=== PATIENT | female | born 1940 | race Caucasian/White ===

== ENCOUNTER 2016-10-30 07:18 | Day surgery (SDC) ==
[2016-10-30] MEDS ORDERED: LIDOCAINE 1% 2ML (SURGERY ONLY) ID ONE (08:14)
[2016-10-30] MEDS ORDERED: LIDOCAINE 1% 20 ML MDV ONE (08:14)
[2016-10-30] MEDS ORDERED: ZOFRAN 4 MG/2 ML ONE (09:05)
[2016-10-30] MEDS ORDERED: ANECTINE ONE (09:05)
[2016-10-30] MEDS ORDERED: VERSED ONE (09:05)
[2016-10-30] MEDS ORDERED: DIPRIVAN 20 ML VIAL IVP ONE (09:05)
[2016-10-30] MEDS ORDERED: NORCO 5-325 PO ONE (10:12)
[2016-10-30 14:00] VITALS: BP 99/64; TEMP 98.8
--- NOTE | 2016-10-31 14:15 | OP ---
PREOPERATIVE DIAGNOSIS: CARCINOMA OF THE BASE OF TONGUE POSTOPERATIVE DIAGNOSIS: SAME OPERATION: DIRECT LARYNGOSCOPY AND BIOPSY BASE OF TONGUE PROCEDURE: The patient was taken to surgery, placed on the table and general anesthesia was administered. An anterior laryngoscope was inserted down the vallecula which appeared to be free of disease. Piriform sinuses were clear. Vocal cords moved well with no lesions noted. The epiglottis appeared free of disease. There was inflammation and postop surgical changes of the base of tongue on the left. Biopsy was taken of this area and sent off for permanent section. The patient was then taken back to the recovery room in satisfactory condition. LUKE
== END 2016-10-30 14:28 | disposition admitted as inpatient to this hospital (09) ==
LOC: SURG 07:18
PROVIDERS: ATTEND Otolaryngology
DX: C02.9 Malignant neoplasm of tongue, unspecified (principal)

== ENCOUNTER 2016-11-13 12:12 | Inpatient (IN) ==
[2016-11-13] MEDS ORDERED: ATROPINE SULFATE PFS IVP PRN (13:22)
[2016-11-13] MEDS ORDERED: VISTARIL INJ IM PRN (13:22)
[2016-11-13] MEDS ORDERED: NITROSTAT SL PRN (13:22)
[2016-11-13] MEDS ORDERED: MORPHINE 4 MG/ML SYRINGE IVP PRN (13:22)
[2016-11-13] MEDS: DEXTROSE 5%-1/2NS IV SOLUTION 1,000 ML IV SCH (13:35)
[2016-11-13 13:55] LABS: BASOPHILS % (AUTO) 0.5 % (0.0-3.0); HEMATOCRIT 32.4 % (37.0-47.0); HEMOGLOBIN 11.4 g/dl (12.0-16.0); IMMATURE GRANULOCYTE % (AUTO) 0.2 % (0.0-5.0); LYMPHOCYTES # (AUTO) 0.7 K/uL (0.60-3.4); LYMPHOCYTES % (AUTO) 9.8 (10.0-50.0); MEAN CORPUSCULAR HEMOGLOBIN 33.6 pg (27.0-31.0); MEAN CORPUSCULAR HGB CONC 35.2 (31.8-35.4); MEAN CORPUSCULAR VOLUME 95.6 fl (81.0-99.0); MONOCYTES # (AUTO) 0.3 K/uL (0.4-2.0); MONOCYTES % (AUTO) 3.8 (0-10); NEUTROPHILS # (AUTO) 5.7 K/ul (2.0-6.9); NEUTROPHILS % (AUTO) 85.7; PLATELET COUNT 196 10^3/uL (140-440); RED BLOOD COUNT 3.39 10^6/ul (4.20-5.40); WHITE BLOOD COUNT 6.63 K/ul (4.6-10.2)
--- NOTE | 2016-11-13 14:21 | DI ---
EXAM: CHEST FRONTAL VIEW HISTORY: Cough. COMPARISON: 03/18/2012 FINDINGS: Heart size and mediastinum remain within normal limits. There is at least mild aortic a therosclerosis. There are scattered calcifications suggesting old granulomatous disease. No acute i nfiltrates are seen. There is no consolidation, visible pleural fluid or pneumothorax. Bones reveal no acute fracture. IMPRESSION: No acute cardiopulmonary process.
[2016-11-13 14:24] LABS: ALBUMIN 3.6 g/dL (3.4-5.0); ALBUMIN/GLOBULIN RATIO 1.5; ANION GAP 13.4; BILIRUBIN,TOTAL 0.38 mg/dL (0.00-1.20); BUN/CREATININE RATIO 18.3; CALCIUM 8.9 mg/dL (8.2-10.2); CREATININE 0.71 mg/dL (0.60-1.30); POTASSIUM 4.4 mmol/L (3.5-5.10)
[2016-11-13 14:30] LABS: CREATINE KINASE 24 U/L; MYOGLOBIN 48 ng/ml
[2016-11-13 14:31] VITALS: BMI 20.5
[2016-11-13] MEDS: DILAUDID 1 MG/ML SYRINGE IVP PRN (18:13)
[2016-11-13] MEDS: TORADOL IVP PRN (21:34)
[2016-11-13 22:09] LABS: CREATINE KINASE 26 U/L; MYOGLOBIN 42 ng/ml
[2016-11-14 01:07] LABS: BILIRUBIN,URINE Negative (NEGATIVE); KETONES,URINE Negative (NEGATIVE); LEUKOCYTE ESTERASE ,URINE Negative (NEGATIVE); NITRITE,URINE Negative (NEGATIVE); PH,URINE 7.5 (5-9); PROTEIN,URINE Negative (NEGATIVE); URINE, BLOOD Negative (NEGATIVE)
[2016-11-14 01:09] LABS: ADD URINE MICROSCOPIC NO
[2016-11-14] MEDS: DEXTROSE 5%-1/2NS IV SOLUTION 1,000 ML IV SCH ×2 (05:37→21:42)
[2016-11-14] MEDS ORDERED: NON-FORMULARY MEDICATION (Losartan Potassium [Losartan Potassium] 50 MG) PO SCH (09:00)
[2016-11-14] MEDS ORDERED: NON-FORMULARY MEDICATION (Levothyroxine Sodium [Levothyroxine Sodium] 125 MCG) PO SCH ×22 (09:00)
[2016-11-14] MEDS ORDERED: NON-FORMULARY MEDICATION (Propranolol Hcl [Propranolol Hcl] 40 MG) PO SCH ×22 (09:00)
[2016-11-14] MEDS ORDERED: SYNTHROID PO SCH (09:00)
--- NOTE | 2016-11-14 09:29 | HP ---
DATE OF SERVICE: 11/13/16 HISTORY OF PRESENT ILLNESS: This is a 76-year-old female who had undergone a resection and biopsy of her tongue due to history of tongue cancer by Dr. Portillo today at [facility]. 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 After the procedure, she had mild sedation with Versed and Fentanyl, the postop nurse called and stated she was having some episodes of hypotension. She had blood pressures down into the 70s. They gave her 1.5 Liter fluid bolus. At the time of the call her blood pressure was in the 90's/50, she was feeling weak, was pale. Her hemoglobin they checked and it was 10.3. Her oxygen saturation - she required blow by 02 and was not above 90% without that. She was saying that she was in excruciating pain. The plan initially was to give her p.o. [place]; however , due to her procedure and the pain and swelling, she was unable to swallow the pills. Subsequently, Dr. Portillo consulted us and we will admit her today for hypotension, weakness and of course some pain control. REVIEW OF SYSTEMS: CONSTITUTIONAL: Positive for generalized weakness and fatigue. No night sweats. No fever or chills. HEENT: Pain in mouth and tongue. Eyes: No visual changes. No eye pain. No eye discharge. ENT: No runny nose. No epistaxis. No sinus pain. No ear pain. No congestion. RESPIRATORY: No cough. No shortness of breath. No hemoptysis. CARDIOVASCULAR: No angina symptoms. No CHF signs or symptoms. No atypical chest pain for CAD. No palpitations. No shortness of breath. GASTROINTESTINAL: Positive for nausea. No vomiting. No abdominal pain. No diarrhea or constipation. No hematemesis. No hematochezia. GENITOURINARY: No dysuria, no hematuria. MUSCULOSKELETAL: Weakness and osteoarthritis. No joint swelling or redness. NEUROLOGICAL: Weakness. No headache. No neck pain. No syncope. No seizures. No dizziness. No double vision. PSYCHIATRIC: The patient is tearful. No suicidal thoughts. No homicidal thoughts. SKIN: Dry and intact. ENDOCRINE: No unexplained weight loss. No weight gain. HEMATOLOGIC/LYMPHATIC: No anemia. No purpura. No petechiae. No prolonged or excessive bleeding. No palpable lymph nodes. PERSONAL/FAMILY/SOCIAL HISTORY: The patient is . She denies any alcohol or ilicit drug use. She is a nonsmoker and she has minimal family contact and support. PAST MEDICAL HISTORY: 1. History of cancer of the left tonsil in 2001. 2. Hypothyroidism. 3. Dyslipidemia. 4. Anemia. 5. Osteoporosis/osteoarthritis. 6. B12 deficiency. 7. Anemia. 8. Hypertension. 9. Dyslipidemia. MEDICATIONS: 1. Amlodipine 5 mg daily 2. Losartan 50 mg daily 3. Synthroid 125 mcg daily 4. Propanolol 40 mg b.i.d. 5. Pravastatin 40 mg daily 6. Ferrous Sulfate 325 mg daily 7. Tylenol 500 mg t.i.d. p.r.n. ALLERGIES: X-RAY DYE (SEVERE ITCHING) PHYSICAL EXAMINATION: GENERAL: Skin is dry, pale. VITAL SIGNS: Pulse 75, BP 93/54 upon admission to the floor. Oxygen saturation 98% with blow by 02 of 5L. HEENT: Head normocephalic, atraumatic. Eyes: Extraocular muscles are intact. Pupils are equal, round and reactive to light and accommodation. Ears: No lesions. Nose appeared normal. Mouth: Status post resection of tongue, partial removal of her tongue. Throat: No exudate or erythema. NECK: Supple. No JVD, no carotid bruit. No lymphadenopathy or thyromegaly. LUNGS: Clear with diminished breath sounds bilaterally. Percussion note normal. Chest symmetrical. HEART: S1, S2, no S3. No murmurs, clicks or rubs. No cyanosis or clubbing. No ascites. Pulses: Dorsalis pedis and posterior tibial pulses +1 to +2 both sides. ABDOMEN: Soft. Nontender. Bowel sounds active times four quadrants. No CVA tenderness. No mass felt. EXTREMITIES: No edema. Full range of motion of all extremities, equal. Pulses +2 times four extremities. NEUROLOGIC: Motor and gait normal with positive generalized weakness. No focal deficit. Cranial nerves II through XII are grossly intact. No headache, no double vision or headache. SKIN: Not dry. Intact. Turgor - normal. LYMPHATIC: No palpable lymph nodes/no lymphedema. MUSCULOSKELETAL: Normal joints with no swelling. Muscle tone is normal. ASSESSMENT: 1. HYPOTENSION 2. GENERALIZED WEAKNESS 3. ANEMIA 4. STATUS POST BIOPSY AND RESECTION OF TONGUE WITH TONGUE CANCER PLAN: 1. The patient will be admitted to observation. 2. 1 mg Dilaudid IV q.4-6hr p.r.n. pain. 3. Toradol 30 mg q.8hr IV p.r.n. for pain. 4. Routine telemetry orders with a chest x-ray. 5. Will do CBC and CMP today and then daily. 6. Soft diet as tolerated. 7. We will hold all of her blood pressure medications for today and see how her status is as of tomorrow. 8. We will start IV fluids D5 1/2 Normal Saline at 60 cc/hr. 9. The patient can be up and about as tolerated. Chest x-ray on admission is normal with no cardiopulmonary process. CMP - sodium 133, BUN 13, creatinine 0.71, glucose 119. Repeat hemoglobin 11.4, hematocrit 32.4, white count 6.6 and platelets 196. TIME SPENT: More than 70 minutes. MTDD
--- NOTE | 2016-11-14 10:28 | PN ---
DATE OF SERVICE: 11/13/16 SUBJECTIVE: The patient was seen with the nurse practitioner. The patient is a 76 year old white female underwent surgery and biopsy for possible tongue carcinoma. She has history of jaw carcinoma for a long time. Dr. Portillo and the nursing staff from [facility] called my services as primary care physician of Jacki Mancera and reported that patient was running blood pressure systolic of 90-100, looks somewhat pale, pulse was close to 80 per minute with normal oxygen saturation. I examined the patient and the patient looked pale, dehydrated and her skin was dry. She was oriented to time, place and person. She lives by herself and has nobody to look after her. PHYSICAL EXAMINATION: HEENT: Head normocephalic, atraumatic. Eyes: Extraocular muscles are intact. Pupils are equal, round and reactive to light and accommodation. Ears: No lesions. Nose appeared normal. Throat: No exudate or erythema. NECK: Supple. No JVD, no carotid bruit. No lymphadenopathy or thyromegaly. LUNGS: Decreased breath sounds but clear to auscultation. Percussion note normal. Chest symmetrical. HEART: S1, S2, no S3. No murmurs. No cyanosis or clubbing. No ascites. Pulses: Dorsalis pedis and posterior tibial pulses +1 to +2 both sides. ABDOMEN: Soft. Nontender. Bowel sounds active. No CVA tenderness. No mass felt. EXTREMITIES: No edema. Full range of motion of all extremities, equal. NEUROLOGIC: No focal deficit. Cranial nerves II through XII are grossly intact. No headache, no double vision or headache. SKIN: Dry. Intact. Turgor - normal. Mucosa membrane dry. LYMPHATIC: No palpable lymph nodes/no lymphedema. MUSCULOSKELETAL: Normal joints with no swelling. Muscle tone is normal. LABS: Hgb was 11.4, hct 32, WBC 6,600 normal differential, creatinine 0.7, BUN 13, potassium 4.4. Chest x-ray was normal. ASSESSMENT: 1. Hypotension etiology could be dehydration post op hypotension PLAN: 1. Give IV fluids 2. Monitor telemetry 3. Monitor the cardiac rhythm with telemetry CONDITION: Stable. TIME SPENT: More than 30 minutes. Plan and coordination of the patient's care discussed in the presence of nurse. LUKE
[2016-11-14] MEDS: COZAAR PO SCH (10:37)
[2016-11-14] MEDS: AMOXIL PO SCH ×2 (10:38→17:11)
[2016-11-14] MEDS: TORADOL IVP PRN (10:38)
[2016-11-14] MEDS: SYNTHROID PO SCH ×2 (10:40→10:41)
[2016-11-14] MEDS: NORVASC PO SCH (10:40)
[2016-11-14] MEDS: INDERAL PO SCH ×2 (10:41→20:21)
[2016-11-14] MEDS: ULTRAM PO SCH ×3 (12:10→20:21)
--- NOTE | 2016-11-14 13:16 | PCM.PROG ---
Attending Provider: ATTENDING PROVIDER: Dr. KVNG EPSTEIN DATE OF SERVICE: 11/14/16 SUBJECTIVE: This 76 year old WHITE/ F was hospitalized 11/13/16. The patient is seen with Anum, Nurse Practitioner. The patient is lying in bed alert, states pain has been helped with medication. Tongue is more swollen and sore today, can drink boost and water. REVIEW OF SYSTEMS: CONSTITUTIONAL: No night sweats. No fatigue, malaise, lethargy. No fever or chills. HEENT: Eyes: No visual changes. No eye pain. No eye discharge. ENT: No runny nose. No epistaxis. No sinus pain. No odynophagia. No congestion. Mouth: Tongue pain. RESPIRATORY: No cough, no congestion. No hemoptysis. CARDIOVASCULAR: No angina symptoms. No CHF symptoms. No atypical chest pain for CAD. No palpitations. No shortness of breath. GASTROINTESTINAL: No abdominal pain. No nausea or vomiting. No diarrhea or constipation. No hematemesis. No hematochezia. GENITOURINARY: No urgency. No frequency. No dysuria. No hematuria. No obstructive symptoms. No discharge. No pain. No significant abnormal bleeding. MUSCULOSKELETAL: No musculoskeletal pain; no joint swelling. NEUROLOGICAL: Awake, alert, oriented to time, place and person. No headache. No neck pain. No syncope. No seizures. No dizziness. PSYCHIATRIC: Not anxious. No depression. No suicidal thoughts. No homicidal thoughts. SKIN: No rash. No lesions. No wounds. ENDOCRINE: No unexplained weight loss. No weight gain. HEMATOLOGIC/LYMPHATIC: No anemia. No purpura. No petechiae. No prolonged or excessive bleeding. No palpable lymph nodes. PHYSICAL EXAMINATION: GENERAL: The patient is awake, alert and oriented, lying/sitting in bed in no distress. VITAL SIGNS: Temperature 96.8 F, Pulse 88, Respiratory Rate 20, BP 153/80, Pulse Ox 98% HEENT: Head normocephalic, atraumatic. Eyes: Extraocular muscles are intact. Pupils are equal, round and reactive to light and accommodation. Ears: No lesions. Nose appeared normal. Mouth: Swollen tongue. Throat: No exudate or erythema. NECK: Supple. No JVD, no carotid bruit. No lymphadenopathy or thyromegaly. LUNGS: Decreased breath sounds bilaterally. Clear to auscultation. Percussion note normal. Chest symmetrical. HEART: S1, S2, no S3. No murmurs. No cyanosis or clubbing. No ascites. Pulses: Dorsalis pedis and posterior tibial pulses +1 to +2 both sides. ABDOMEN: Soft. Non-tender. Bowel sounds active. No CVA tenderness. No mass felt. EXTREMITIES: No edema. Full range of motion of all extremities, equal. NEUROLOGIC: No focal deficit. Cranial nerves II through XII are grossly intact. No headache, no double vision or headache. SKIN: Not dry. Intact. Turgor-normal. LYMPHATIC: No palpable lymph nodes/no lymphedema. MUSCULOSKELETAL: Normal joints with no swelling. Muscle tone is normal. LAB REVIEW: 11/13/16 13:48 11/13/16 13:48 11/14/16 00:45: Urine Color Yellow, Urine Clarity Clear, Urine pH 7.5, Ur Specific Buckhorn 1.015, Urine Protein Negative, Urine Glucose (UA) Negative, Urine Ketones Negative, Urine Blood Negative, Urine Nitrite Negative, Urine Bilirubin Negative, Urine Urobilinogen 0.2, Ur Leukocyte Esterase Negative 11/13/16 21:30: Total Creatine Kinase 26, Myoglobin 42, Troponin I < 0.0100 11/13/16 13:48: WBC 6.63, RBC 3.39 L, Hgb 11.4 L, Hct 32.4 L, MCV 95.6, MCH 33.6 H, MCHC 35.2, RDW Coeff of Rama 12.6, Plt Count 196, Immature Gran % (Auto) 0.2, Neut % (Auto) 85.7, Lymph % (Auto) 9.8 L, Stevens % (Auto) 3.8, Eos % (Auto) 0.0, Baso % (Auto) 0.5, Immature Gran # (Auto) 0.0, Neut # 5.7, Lymph # 0.7, Stevens # 0.3 L, Eos # 0.0, Baso # 0.0, Sodium 133 L, Potassium 4.4, Chloride 98, Carbon Dioxide 26, Anion Gap 13.4, BUN 13, Creatinine 0.71, Estimated GFR (MDRD ) 80.00, BUN/Creatinine Ratio 18.30, Glucose 119 H, Calcium 8.9, Total Bilirubin 0.38, AST 19, ALT 17, Alkaline Phosphatase 78, Total Creatine Kinase 24, Myoglobin 48, Troponin I < 0.0100, Total Protein 6.0, Albumin 3.6, Globulin 2.4, Albumin/Globulin Ratio 1.50 ASSESSMENT: 1. Hypotension status post tongue biopsy 2. Carcinoma of tongue with small resection 3. Dizziness PLAN: 1. Continue IV fluids 2. Will try to give home medications Plan and coordination of the patient's care discussed in the presence of Staffing Clerk and nurse. CONDITION: Stable SCRIBED BY: JINNY AYALA Supervisor Production scribed while in presence of service performed by Dr. KVNG EPSTEIN/ANUM ALEX APRN on 11/14/16 ([id number])
[2016-11-14] MEDS: DILAUDID 1 MG/ML SYRINGE IVP PRN (17:40)
[2016-11-15] MEDS: AMOXIL PO SCH ×2 (02:45→08:42)
[2016-11-15] MEDS: SYNTHROID PO SCH ×2 (05:31)
[2016-11-15] MEDS: DILAUDID 1 MG/ML SYRINGE IVP PRN (05:35)
--- NOTE | 2016-11-15 08:29 | RS.SLPCNOT ---
Speech Case Note Date of Note: 11/15/16 Title: Speech Consult Note: OUTSIDE SALES ASSOCIATE spoke with director case who reported pt is planned for discharge this date. casino shift manager reported pt primarily consumes a liquid diet d/t hx of throat and tongue cancer. OUTSIDE SALES ASSOCIATE did not assess pt at the bedside this date. No other concerns were reported. Pt may benefit from home health speech therapy services.
[2016-11-15 08:39] LABS: BASOPHILS % (AUTO) 0.2 % (0.0-3.0); EOSINOPHILS # (AUTO) 0.1 K/ul (0.0-0.7); EOSINOPHILS % (AUTO) 1.1 % (0.0-7.0); HEMATOCRIT 31.1 % (37.0-47.0); HEMOGLOBIN 10.9 g/dl (12.0-16.0); IMMATURE GRANULOCYTE % (AUTO) 0.3 % (0.0-5.0); LYMPHOCYTES # (AUTO) 1.1 K/uL (0.60-3.4); LYMPHOCYTES % (AUTO) 12.6 (10.0-50.0); MEAN CORPUSCULAR HEMOGLOBIN 34.1 pg (27.0-31.0); MEAN CORPUSCULAR VOLUME 97.2 fl (81.0-99.0); MONOCYTES # (AUTO) 0.5 K/uL (0.4-2.0); MONOCYTES % (AUTO) 6.1 (0-10); NEUTROPHILS % (AUTO) 79.7; PLATELET COUNT 177 10^3/uL (140-440); WHITE BLOOD COUNT 8.75 K/ul (4.6-10.2)
[2016-11-15] MEDS: COZAAR PO SCH (08:41)
[2016-11-15] MEDS: INDERAL PO SCH (08:41)
[2016-11-15] MEDS: NORVASC PO SCH (08:42)
[2016-11-15] MEDS: ULTRAM PO SCH (08:42)
[2016-11-15 09:20] LABS: ALBUMIN 3.3 g/dL (3.4-5.0); ALBUMIN/GLOBULIN RATIO 1.1; ANION GAP 12.8; BILIRUBIN,TOTAL 0.54 mg/dL (0.00-1.20); BUN/CREATININE RATIO 13.63; CALCIUM 8.8 mg/dL (8.2-10.2); CREATININE 0.66 mg/dL (0.60-1.30); POTASSIUM 3.8 mmol/L (3.5-5.10); TOTAL PROTEIN 6.3 g/dL (5.8-8.1)
[2016-11-15 10:32] VITALS: BP 99/56; TEMP 96.8
--- NOTE | 2016-11-15 10:38 | PN ---
DATE OF SERVICE: 11/14/16 SUBJECTIVE: The patient was seen with the nurse practitioner. The patient is a 76 year old white female hospitalized with hypotension post op. The patient was dehydrated with dry skin. The patient's skin turgor looks a lot better. Her appetite seems to have improved. She is more alert. She says that she is feeling somewhat better. PHYSICAL EXAMINATION: VITALS: Blood pressure has gone up to 153/80. HEENT: Head normocephalic, atraumatic. Eyes: Extraocular muscles are intact. Pupils are equal, round and reactive to light and accommodation. Ears: No lesions. Nose appeared normal. Throat: No exudate or erythema. NECK: Supple. No JVD, no carotid bruit. No lymphadenopathy or thyromegaly. LUNGS: Decreased breath sounds but Clear to auscultation. Percussion note normal. Chest symmetrical. HEART: S1, S2, no S3. No murmurs. No cyanosis or clubbing. No ascites. Pulses: Dorsalis pedis and posterior tibial pulses +1 to +2 both sides. ABDOMEN: Soft. Nontender. Bowel sounds active. No CVA tenderness. No mass felt. EXTREMITIES: No edema. Full range of motion of all extremities, equal. NEUROLOGIC: No focal deficit. Cranial nerves II through XII are grossly intact. No headache, no double vision or headache. SKIN: Not dry. Intact. Turgor - normal. LYMPHATIC: No palpable lymph nodes/no lymphedema. MUSCULOSKELETAL: Normal joints with no swelling. Muscle tone is normal. LABS: Stable with hgb 11.4 and creatinine 0.7, BUN 13. ASSESSMENT: 1. Hypotension, resolved 2. Dehydration seems to have resolved. PLAN: 1. Continue IV antibiotics 2. Advised to get up and walk around CONDITION: Stable. TIME SPENT: More than 30 minutes. Plan and coordination of the patient's care discussed in the presence of nurse. LUKE
--- NOTE | 2016-11-15 10:44 | CM.DICTOOL ---
ADMISSION: 11/13/16 12:12 DISCHARGE: 11/15/16 DATE OF SERVICE: 11/15/16 FINAL DIAGNOSIS POST OP HYPOTENSION BIOPSY OF TONGUE, 11/13/16 (DR. MCCAIN) DYSPHAGIA SECONDARY TO TONGUE BIOPSY ANEMIA CARCINOMA OF THE TONGUE WITH SMALL RESECTION, 2002 THROAT CANCER, 2002 [facility] TE[facility] [place] HYPERTENSION GERD OSTEOARTHRITIS ANXIETY LAST VITALS Temp Pulse Resp BP Pulse Ox 98.8 F 62 16 114/68 95 11/15/16 05:32 11/15/16 05:32 11/15/16 05:32 11/15/16 05:32 11/15/16 05:32 ACTIVE MEDICATIONS Acetaminophen (Tylenol Extra Strength) 500 mg PO DAILY Amlodipine Besylate (Norvasc) 5 mg PO DAILY [facility] Last Admin: 11/15/16 08:42 Dose: 5 mg Amoxicillin (Amoxil) 250 mg PO Q8H [facility] (NEW--DR. MCCAIN) Stop: 11/21/16 09:29 Last Admin: 11/15/16 08:42 Dose: 250 mg Ferrous Sulfate 65 mg PO DAILY Levothyroxine Sodium (Synthroid) 125 mcg PO QDAC [facility] Last Admin: 11/15/16 05:31 Dose: 25 mcg Losartan Potassium (Cozaar) 50 mg PO DAILY [facility] Last Admin: 11/15/16 08:41 Dose: 50 mg Pravastatin Sodium 40 mg PO DAILY Propranolol HCl (Inderal) 40 mg PO BID [facility] Last Admin: 11/15/16 08:41 Dose: 40 mg Tramadol HCL 50 mg PO TID ALLERGIES IV constrast Allergy (Uncoded 09/04/16 13:26) NEW PRESCRIPTIONS: DR. MCCAIN: NORCO 7.5-325 MG, TAKE ONE TO TWO TABLETS BY MOUTH EVERY 6 HOURS IF NEEDED FOR PAIN AMOXICILLIN 500 MG, TAKE ONE TABLET BY MOUTH THREE TIMES DAILY FOR 6 DAYS (YOU HAVE HAD ONE DAY OF AMOXICILLIN AT [facility]) SMOKING: NONSMOKER DISEASE SPECIFIC EDUCATION: HYPOTENSION DIET ACTIVITY FOLLOW UP SELF CARE AT HOME MEDICATIONS NEW PRESCRIPTIONS FROM DR. YANG LAB REVIEW: 11/15/16 08:27 11/15/16 08:27 11/15/16 08:27: WBC 8.75, RBC 3.20 L, Hgb 10.9 L, Hct 31.1 L, MCV 97.2, MCH 34.1 H, MCHC 35.0, RDW Coeff of Rama 12.9, Plt Count 177, Immature Gran % (Auto) 0.3, Neut % (Auto) 79.7, Lymph % (Auto) 12.6, Rabun % (Auto) 6.1, Eos % (Auto) 1.1, Baso % (Auto) 0.2, Immature Gran # (Auto) 0.0, Neut # 7.0 H, Lymph # 1.1, Rabun # 0.5, Eos # 0.1, Baso # 0.0, Sodium 129 L, Potassium 3.8, Chloride 95 L, Carbon Dioxide 25, Anion Gap 12.8, BUN 9, Creatinine 0.66, Estimated GFR (MDRD) 87.00, BUN/Creatinine Ratio 13.63, Glucose 92, Calcium 8.8, Total Bilirubin 0.54 , AST 17, ALT 14, Alkaline Phosphatase 77, Total Protein 6.3, Albumin 3.3 L, Globulin 3.0, Albumin/Globulin Ratio 1.10, TSH 1.357, Free T4 1.73 H PLAN: DISCHARGE HOME TODAY RETURN TO SEE DR. EPSTEIN ON 11/22/16 AT 11:30 A.M. RETURN TO SEE DR. MCCAIN ON 11/20/16 AT 1:15 P.M. [facility] AND [facility] WILL BE RESUMED. THEY WILL PHONE YOU TO SCHEDULE VISITS TO YOUR HOME. RESUME YOUR HOME MEDICATIONS PER LIST PROVIDED BY THE NURSING STAFF NEW PRESCRIPTIONS BY DR. MCCAIN: NORCO 7.5-325 MG, TAKE ONE TO TWO TABLETS BY MOUTH EVERY 6 HOURS IF NEEDED FOR PAIN AMOXICILLIN 500 MG, TAKE ONE TABLET BY MOUTH THREE TIMES DAILY FOR 6 DAYS (YOU HAVE HAD ONE DAY OF AMOXICILLIN AT [facility]) DIET: RESUME YOUR HOME DIET TOLERATED ACTIVITY: GET PLENTY OF REST AT HOME. GRADUALLY INCREASE YOUR ACTIVITY LEVEL ACCORDING TO YOUR TOLERATION SUMMARY: THE PATIENT IS ALERT AND ORIENTED X3. SHE CURRENTLY RESIDES AT HOME ALONE. WE HAVE HAD DISCUSSION WITH HER REGARDING HER ABILITY TO PROVIDE SELF-CARE. SHE ADAMANTLY SAYS SHE DESIRES TO RETURN TO HER "[place] [address]ART[place]" WHERE HER NEIGHBORS RESIDE VERY CLOSE. SHE SAYS THEY ASSIST HER WITH NEEDS WHEN NECESSARY. SHE ALSO UTILIZES [facility] TWICE WEEKLY FOR MED SURG RN. [facility] WILL BE RESUMED AT DISCHARGE WELL. CASE MANAGEMENT WILL MAKE ARRANGEMENTS FOR THE HOMEMAKING SERVICE TIME TO BE INCREASED AFTER THIS HOSPITAL STAY. MS. GRAHAM IS ABLE TO BE AMBULATORY WITH USE OF A ROLLATOR. SHE HAS NO OTHER DME NEEDS AT THIS TIME. THE PATIENT'S SKIN TURGOR IS FAIR TO GOOD. SHE HAS NO DECUBITUS ULCERS PRESENT AT DISCHARGE. SHE HAS SHOWN POSITIVE CLINICAL IMPROVEMENT. SHE IS AFEBRILE. OTHER V/S ARE STABLE. WE WILL DISCHARGE HER TODAY. SHE IS AWARE AND AGREEABLE FOR DISCHARGE. CURRENT CODE STATUS: FULL CODE KVNG EPSTEIN M.D.
--- NOTE | 2016-11-15 11:19 | PCM.PROG ---
Attending Provider: ATTENDING PROVIDER: Dr. KVNG EPSTEIN DATE OF SERVICE: 11/15/16 SUBJECTIVE: This 76 year old WHITE/ F was hospitalized 11/13/16. The patient is hospitalized with dehydration and hypotension. The patient's condition improved. She is looking a lot better, color and skin turgor better. Appetite has improved. The patient is talking better. The patient lives alone , has taken care of herself for a number of years. REVIEW OF SYSTEMS: CONSTITUTIONAL: No night sweats. No fatigue, malaise, lethargy. No fever or chills. HEENT: Eyes: No visual changes. No eye pain. No eye discharge. ENT: No runny nose. No epistaxis. No sinus pain. No odynophagia. No congestion. Mouth: Tongue is retracted but no evidence of infection. RESPIRATORY: No cough, no congestion. No hemoptysis. CARDIOVASCULAR: No angina symptoms. No CHF symptoms. No atypical chest pain for CAD. No palpitations. No shortness of breath. GASTROINTESTINAL: Appetite has improved. No abdominal pain. No nausea or vomiting. No diarrhea or constipation. No hematemesis. No hematochezia. GENITOURINARY: No urgency. No frequency. No dysuria. No hematuria. No obstructive symptoms. No discharge. No pain. No significant abnormal bleeding. MUSCULOSKELETAL: No musculoskeletal pain; no joint swelling. NEUROLOGICAL: Awake, alert, oriented to time, place and person. No headache. No neck pain. No syncope. No seizures. No dizziness. PSYCHIATRIC: Not anxious. No depression. No suicidal thoughts. No homicidal thoughts. SKIN: No rash. No lesions. No wounds. ENDOCRINE: No unexplained weight loss. No weight gain. HEMATOLOGIC/LYMPHATIC: No anemia. No purpura. No petechiae. No prolonged or excessive bleeding. No palpable lymph nodes. PHYSICAL EXAMINATION: GENERAL: The patient is awake, alert and oriented, lying in bed in no distress. VITAL SIGNS: Temperature 98.8 F, Pulse 62, Respiratory Rate 16, BP 114/68, Pulse Ox 95% HEENT: Head normocephalic, atraumatic. Eyes: Extraocular muscles are intact. Pupils are equal, round and reactive to light and accommodation. Ears: No lesions. Nose appeared normal. Mouth: Small retracted tongue. Throat: No exudate or erythema. NECK: Supple. No JVD, no carotid bruit. No lymphadenopathy or thyromegaly. LUNGS: Decreased breath sounds. Clear to auscultation. Percussion note normal. Chest symmetrical. HEART: S1, S2, no S3. No murmurs. No cyanosis or clubbing. No ascites. Pulses: Dorsalis pedis and posterior tibial pulses +1 to +2 both sides. ABDOMEN: Soft. Non-tender. Bowel sounds active. No CVA tenderness. No mass felt. EXTREMITIES: No edema. Full range of motion of all extremities, equal. NEUROLOGIC: No focal deficit. Cranial nerves II through XII are grossly intact. No headache, no double vision or headache. The patient's speech is understandable. SKIN: Not dry. Intact. Turgor-normal. LYMPHATIC: No palpable lymph nodes/no lymphedema. MUSCULOSKELETAL: Normal joints with no swelling. Muscle tone is normal. LAB REVIEW: 11/13/16 13:48 11/13/16 13:48 ASSESSMENT: 1. Hypotension 2. Dehydration 3. Cancer of the tongue 4. Cancer of the jaw, left side with radiation PLAN: 1. The patient's tongue is retracted and almost atrophied with cancer of the tongue. The patient is followed by ENT, Dr. Portillo, and she has appointment to see him next few days on Amoixicillin by Dr. Portillo. 2. The patient has Home Health Care and has extra help at home. The patient is able to manage herself with meals and ambulation. 3. Discharge home. Plan and coordination of the patient's care discussed in the presence of Paving Inspector and nurse. CONDITION: Stable SCRIBED BY: JINNY AYALA Architectural Practice Manager scribed while in presence of service performed by Dr. KVNG EPSTEIN on 11/15/16 ([id number])
--- NOTE | 2016-11-15 11:44 | DS ---
DATE OF SERVICE: 11/15/16 FINAL DIAGNOSIS: 1. POSTOP HYPOTENSION 2. BIOPSY OF TONGUE 11/13/16 (DR. MCCAIN) 3. DYSPHAGIA SECONDARY TO TONGUE BIOPSY 4. ANEMIA 5. 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 THROAT CANCER, 2001 7. LEFT RENAL TEAR (DR. ORDONEZ, [place], [place]) 8. HYPERTENSION 9. GERD 10. OSTEOARTHRITIS 11. ANXIETY LAST V/S AT DISCHARGE: Temperature 98.8, pulse 62, respiratory rate 16, BP 114/68, pulse ox 95. DISCHARGE INSTRUCTIONS: 1. Return to see Dr. Gusman on 11/22/16 at 11:30 a.m. 2. Return to see Dr. Mccain on 11/20/16 at 1:15 p.m. 3. [facility] and [facility] will be resumed. They will phone you to schedule visits to your home. MEDICATIONS AT DISCHARGE: 1. Propranolol 40 mg p.o. b.i.d. 2. Ferrous Sulfate 325 mg capsule, 65 mg p.o. daily 3. Pravastatin 40 mg p.o. daily 4. Acetaminophen 500 mg p.o. daily 5. Losartan 50 mg p.o. daily 6. Levothyroxine 125 mcg p.o. daily 7. Amlodipine 5 mg p.o. daily 8. Tramadol 50 mg p.o. t.i.d. NEW PRESCRIPTIONS: 1. Per Ollie Blevins 7.5 - 325 mg take one to two tablets by mouth every 6 hours if needed for pain. 2. Amoxicillin 500 mg take one tablet by mouth three times daily for 6 days. ( You have had one day of Amoxicillin at [facility]) DIET INSTRUCTIONS: Resume your home medications as per list provided by nursing staff. ACTIVITY: Get plenty of rest at home. Gradually increase your activity level according to your toleration. SMOKING: N/A DISEASE SPECIFIC EDUCATION: 1. Hypotension 2. Diet 3. Activity 4. Followup 5. Self Care at home 6. Medications 7. New prescriptions from Dr. Mccain [facility] COURSE: This is a 76-year-old female hospitalized from surgical recovery room with hypotension and dehydration. The patient had biopsy of tongue by Dr. Mccain and he called me because of the hypotension. Condition has improved. Hydration status has improved. Blood pressure systolic is more than 100. CBC, CMP are stable. Appetite has improved. The tongue is retracted, no infection. LABS: 11/13/16 WBC 6.63, hemoglobin 11.4, platelets 196, hematocrit 32.4. Chemistries : Sodium 133, chloride 98, BUN 13, glucose 119, K+ 4.4, c02 26, creatinine 0.71. CONDITION: Stable. The patient will be followed by myself and Dr. Mccian. TIME SPENT: More than 60 minutes. SCRIBED BY: JINNY AYALA Field Sales Trainer scribed while in presence of service performed by Dr. KVNG GUSMAN on 11/15/16 ([id number]) [facility]
[2016-11-15] MEDS: DEXTROSE 5%-1/2NS IV SOLUTION 1,000 ML IV SCH (12:33)
== END 2016-11-15 12:50 | disposition home or self-care (01) | DRG 312 ==
LOC: MEDSURG B 12:12 → OBSVTOIN 12:12 → UNDOADMOB 12:12
PROVIDERS: ADMIT Internal Medicine; ATTEND Internal Medicine
DX: I95.81 Postprocedural hypotension (principal); E86.0 Dehydration; Z98.890 Other specified postprocedural states; R13.19 Other dysphagia; K14.6 Glossodynia; D64.9 Anemia, unspecified; I10 Essential (primary) hypertension; K21.9 Gastro-esophageal reflux disease without esophagitis; M19.90 Unspecified osteoarthritis, unspecified site; F41.9 Anxiety disorder, unspecified; R42 Dizziness and giddiness; R07.89 Other chest pain; R11.2 Nausea with vomiting, unspecified; R53.83 Other fatigue; Z85.810 Personal history of malignant neoplasm of tongue; Z85.12 Personal history of malignant neoplasm of trachea; Z87.448 Personal history of other diseases of urinary system; Z79.899 Other long term (current) drug therapy
CPT/HCPCS: 36415; 80053; 81001; 82550; 83874; 84439; 84443; 84484; 85014; 85018; 85025; 93005; 93010; 97802

== ENCOUNTER → 2016-11-13 | Day surgery (SDC) ==
[~2016-11-13] MED LIST: DEMEROL 50 MG/ML SYRINGE IVP ONE; DIPRIVAN 20 ML VIAL IVP ONE; MARCAINE 0.25% MDV INJ ONE; NEOSTIGMINE IVP ONE; ROBINOL ONE; SUBLIMAZE ONE; TRANDATE ONE; VERSED ONE; ZEMURON ONE; ZOFRAN 4 MG/2 ML IVP ONE
[2016-11-13 08:20] VITALS: TEMP 98.1
[2016-11-13 11:07] LABS: HEMATOCRIT 29.2 % (37.0-47.0); HEMOGLOBIN 10.3 g/dl (12.0-16.0)
[2016-11-13 14:08] VITALS: BP 94/46
[2016-11-13 14:31] VITALS: BMI 20.5
--- NOTE | 2016-11-14 11:15 | OP ---
PREOPERATIVE DIAGNOSIS: CARCINOMA OF THE BASE OF THE TONGUE POSTOPERATIVE DIAGNOSIS: CARCINOMA OF THE TONGUE OPERATION: EXCISION OF CARCINOMA OF THE LONG ASPECT OF THE TONGUE AND ANTERIOR TONSIL PILLAR AND FLOOR OF THE MOUTH. PROCEDURE: The patient was taken to surgery, placed on the table and general anesthesia was administered. The Cindy-Cayden mouthgag was inserted then on the direct visualization using a cutting Bovie the lateral aspect of the tongue down to the floor of the mouth and the anterior tonsil pillar was cut and removed. The area removed was approximately 3-4cm by approximately 3cm. The section was carried down to the subcutaneous tissue in the area was removed in toto and sent off for frozen section. The patient was then extubated and return to the recover room in satisfactory condition. LUKE
== END | disposition home or self-care (01) ==
LOC: SURG 07:36
PROVIDERS: ATTEND Otolaryngology
DX: C02.9 Malignant neoplasm of tongue, unspecified (principal); C04.9 Malignant neoplasm of floor of mouth, unspecified; D50.9 Iron deficiency anemia, unspecified; Z85.810 Personal history of malignant neoplasm of tongue
CPT/HCPCS: 36415; 85014; 85018

== ENCOUNTER 2016-12-08 18:01 | Inpatient (IN) ==
[2016-12-08] MEDS ORDERED: ATIVAN PO STA (18:05)
[2016-12-08 18:27] LABS: BASOPHILS # (AUTO) 0.1 K/uL (0-0.2); BASOPHILS % (AUTO) 0.9 % (0.0-3.0); EOSINOPHILS # (AUTO) 0.1 K/ul (0.0-0.7); EOSINOPHILS % (AUTO) 1.1 % (0.0-7.0); HEMATOCRIT 33.5 % (37.0-47.0); HEMOGLOBIN 12.3 g/dl (12.0-16.0); IMMATURE GRANULOCYTE % (AUTO) 0.4 % (0.0-5.0); LYMPHOCYTES # (AUTO) 1.4 K/uL (0.60-3.4); LYMPHOCYTES % (AUTO) 23.9 (10.0-50.0); MEAN CORPUSCULAR HGB CONC 36.7 (31.8-35.4); MEAN CORPUSCULAR VOLUME 92.5 fl (81.0-99.0); MONOCYTES # (AUTO) 0.3 K/uL (0.4-2.0); NEUTROPHILS # (AUTO) 3.9 K/ul (2.0-6.9); NEUTROPHILS % (AUTO) 67.7; PLATELET COUNT 294 10^3/uL (140-440); RED BLOOD COUNT 3.62 10^6/ul (4.20-5.40); WHITE BLOOD COUNT 5.68 K/ul (4.6-10.2)
[2016-12-08 18:42] LABS: ABG BASE EXCESS -4 (-2.0-2.0); ABG HCO3 17.8 (22.0-26.0); ABG PCO2 17.8 mmHg (35-45); ABG PH 7.609 (7.35-7.45); ABG TCO2 18 (22.0-28.0)
--- NOTE | 2016-12-08 18:45 | ED.PDOC ---
General ED Provider: Dr. GUERO MCCAIN JR Chief Complaint: Shortness of Air Stated Complaint: became anxious and sl soa this afternoon--was home alone and states tried to get in touch with neighbor--no acute distress noted--was able to walk to er bed from ems cot without dyspnea--recent diagnosed with throat ca and mouth ca--. [ End ]99.9 87 26 100 05/14. 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 SISTER : GEM AZUL [phone]- CALLED 19:14 Time Seen by Physician: 18:45 Mode of Arrival: Ambulance Information Source: Patient, EMT Exam Limitations: No limitations Primary Care Provider: KVNG GUSMAN Nursing and Triage Documentation Reviewed and Agree: No Review of Systems - Review Of Systems Constitutional: Reports: No symptoms Eyes: Reports: No symptoms Ears, Nose, Mouth, Throat: Reports: Mouth pain Respiratory: Reports: Short of air Cardiac: Reports: No symptoms GI: Reports: No symptoms : Reports: No symptoms Musculoskeletal: Reports: No symptoms Skin: Reports: No symptoms Neurological: Reports: Anxiety Endocrine: Reports: No symptoms Hematologic/Lymphatic: Reports: No symptoms All Other Systems: Other Past Medical History - Past Medical History Endocrine: Reports: Hypothyroid, Dyslipidemia Cardiovascular: Reports: Hypertension, Other (POSTOPERATIVE HYPOTENSION AFTER BIOPSY) Respiratory: Reports: None Hematological: Reports: Anemia (B12 DEFF-OLD RECORD) Gastrointestinal: Reports: None Genitourinary: Reports: None Neuro/Psych: Reports: Anxiety Musculoskeletal: Reports: None 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, STATES SHEDULED TO FOLLOW UP WITH DR PENG), Other (CA LEFT TONSIL 2001) Last Menstrual Period: menopause - Surgical History General Surgical History: Reports: Other - Family History Family History: Reports: Unknown - Social History Smoking Status: Never smoker Hx Substance Use: No Alcohol Screening: None Lives: Alone () Physical Exam - Physical Exam Appearance: Well-appearing, Thin Eyes: SHANIQUE, EOMI, Conjunctiva clear ENT: Ears normal, Nose normal, Oropharynx normal (LEFT MID TONGUE WITH CENTIMETER SIZE DEFECT FIBRINOUS BASE) Neck: Supple Respiratory: Airway patent, Breath sounds clear, Breath sounds equal, Respirations nonlabored Cardiovascular: RRR, Pulses normal, No rub, No murmur GI/: Soft, Nontender, No masses, Bowel sounds normal, No Organomegaly Musculoskeletal: Normal strength, ROM intact, No edema, No calf tenderness Skin: Warm, Dry, Normal color Neurological: Alert, Oriented Psychiatric: Anxious Critical Care Note - Critical Care Note Total Time (mins): 0 Course - Course Hematology/Chemistry: 12/08/16 18:20 12/08/16 18:20 Orders, Labs, Meds: Lab Review 12/08/16 12/08/16 18:03 18:20 WBC 5.68 RBC 3.62 L Hgb 12.3 Hct 33.5 L MCV 92.5 MCH 34.0 H MCHC 36.7 H RDW Coeff of Rama 12.3 Plt Count 294 Immature Gran % (Auto) 0.4 Neut % (Auto) 67.7 Lymph % (Auto) 23.9 [place] % (Auto) 6.0 Eos % (Auto) 1.1 Baso % (Auto) 0.9 Immature Gran # (Auto) 0.0 Neut # 3.9 Lymph # 1.4 [place] # 0.3 L Eos # 0.1 Baso # 0.1 D-Dimer (Manual) 591.46 Puncture Site Lb O2 Saturation 99.0 ABG pH 7.609 H* ABG pCO2 17.8 L ABG pO2 90.0 ABG HCO3 17.8 L ABG Total CO2 18 L ABG Base Excess -4 L Michael Test + FiO2 % 21.0 Sodium 128 L Potassium 4.3 Chloride 92 L Carbon Dioxide 22 L Anion Gap 18.3 BUN 10 Creatinine 0.80 Estimated GFR (MDRD) 70.00 BUN/Creatinine Ratio 12.50 Glucose 116 H Lactic Acid 21.8 H Calcium 10.2 Total Bilirubin 0.48 AST 27 ALT 27 Alkaline Phosphatase 110 Total Creatine Kinase 23 Troponin I 0.0110 B-Natriuretic Peptide 133 H Total Protein 7.7 Albumin 4.1 Globulin 3.6 Albumin/Globulin Ratio 1.14 Procalcitonin < 0.05 Orders Category Date Time Status ABG DRAW REQUEST Stat CARDIO 12/08/16 18:03 Completed EKG-(ED ONLY) Stat CARDIO 12/08/16 18:02 Completed ED IV/MEDIPORT/POWERPORT .ONCE EMERGENCY 12/08/16 18:02 Active ABG Stat LAB 12/08/16 18:03 Completed B-TYPE NATRIURETIC PEPTIDE Stat LAB 12/08/16 18:20 Completed BLOOD CULTURE Stat LAB 12/08/16 18:20 Received CBC W/ AUTO DIFF Stat LAB 12/08/16 18:20 Completed COMPREHENSIVE METABOLIC PANEL Stat LAB 12/08/16 18:20 Completed CREATINE KINASE Stat LAB 12/08/16 18:20 Completed D-DIMER Stat LAB 12/08/16 18:20 Completed LACTIC ACID Stat LAB 12/08/16 18:20 Completed PROCALCITONIN Stat LAB 12/08/16 18:20 Completed TROPONIN I Stat LAB 12/08/16 18:20 Completed 0.9 % Sodium Chloride [Saline Flush] MEDS 12/08/16 18:02 Ordered 1 syr IVF PRN PRN Lorazepam [Ativan] MEDS 12/08/16 18:05 Discontinued 0.5 mg PO ONCE STA CHEST, 2 VIEWS PA & LAT Stat RADS 12/08/16 18:04 Taken Medications Generic Name Dose Route Start Last Admin Trade Name Freq PRN Reason Stop Dose Admin Sodium Chloride 1 syr 12/08/16 18:02 12/08/16 18:36 Saline Flush IVF 1 syr PRN PRN Administration To flush IV Discontinued Medications Generic Name Dose Route Start Last Admin Trade Name Freq PRN Reason Stop Dose Admin Lorazepam 0.5 mg 12/08/16 18:05 12/08/16 18:38 Ativan PO 12/08/16 18:06 0.5 mg ONCE STA Administration Vital Signs: Temp Pulse Resp BP Pulse Ox 12/08/16 18:02 99.9 F H 87 26 H 182/92 H 100 Departure - Departure Time of Disposition: 18:53 Disposition: HOME SELF-CARE Discharge Problem: Anxiety about health, Squamous cell cancer of tongue, Hyponatremia, Deficient knowledge of pulmonary embolism Instructions: Anxiety (ED), Anxiolysis in Adults (ED), Mouth Care for the Cancer Patient (ED) Condition: Good Pt referred to PMD for follow-up: Yes Additional Instructions: CALL PMD TOMORROW TO SCHEDULE FOLLOW UP MAY USE CLONOPIN OCCASIONALLY FOR ANXIETY FOLLOW UP SCHEDULED WITH DR PENG Please follow-up with Dr. Gusman in 1-2 days. Prescriptions: Clonazepam 0.25 mg PO BID PRN #10 tab.rapdis PRN Reason: Anxiety Allergies/Adverse Reactions: Allergies IV constrast Allergy (Uncoded 12/08/16 18:18) Home Medications: Ambulatory Orders Acetaminophen [Tylenol Extra Strength] 500 mg PO DAILY PRN 09/04/16 Amlodipine Besylate 5 mg PO DAILY 09/04/16 Ferrous Sulfate [Iron] 65 mg PO DAILY 09/04/16 Levothyroxine Sodium 125 mcg PO DAILY 09/04/16 Losartan Potassium 50 mg PO DAILY 09/04/16 Pravastatin Sodium 40 mg PO DAILY 09/04/16 Propranolol HCl 40 mg PO BID 09/04/16 Diazepam [Valium] 5 mg PO 2-4XD #50 11/20/16 Clonazepam 0.25 mg PO BID PRN #10 tab.rapdis 12/08/16 Hydrocodone/Acetaminophen [[place] 7.5-325 Tablet] 1 each PO Q8HR PRN 12/08/16
[2016-12-08 19:00] LABS: ALBUMIN 4.1 g/dL (3.4-5.0); ALBUMIN/GLOBULIN RATIO 1.14; ANION GAP 18.3; BILIRUBIN,TOTAL 0.48 mg/dL (0.00-1.20); BUN/CREATININE RATIO 12.5; CALCIUM 10.2 mg/dL (8.2-10.2); CREATININE 0.8 mg/dL (0.60-1.30); POTASSIUM 4.3 mmol/L (3.5-5.10); TOTAL PROTEIN 7.7 g/dL (5.8-8.1); TROPONIN I 0.011 ng/ml (0.0000-0.4000)
--- NOTE | 2016-12-08 19:26 | DI ---
Exam: Two x-rays of the chest. Comparison: 11/13/2016. Reason for exam: Short of air. FINDINGS: No pneumothorax. Parenchymal changes are seen consistent with chronic lung disease. There is blunting of both costophrenic angles consistent with atelectasis or pneumonia. Degenerative changes are seen in the thoracic spine. Impression: Blunting of the costophrenic angles consistent with atelectasis or pneumonia. No pneumo thorax, focal consolidation, or pleural effusion.
[2016-12-08] MEDS ORDERED: TYLENOL PO PRN ×2 (19:28→19:37)
[2016-12-08] MEDS ORDERED: VALIUM PO PRN (19:37)
[2016-12-08] MEDS ORDERED: NORCO 7.5-325 PO PRN (19:37)
[2016-12-08 20:43] VITALS: BMI 19.2
[2016-12-08] MEDS ORDERED: INDERAL ONE (21:20)
[2016-12-08] MEDS: ULTRAM PO SCH (21:23)
[2016-12-08] MEDS: NON-FORMULARY MEDICATION (Propranolol Hcl [Propranolol Hcl] 40 MG) PO SCH ×22 (21:24)
[2016-12-09 01:36] LABS: BASOPHILS % (AUTO) 0.6 % (0.0-3.0); EOSINOPHILS % (AUTO) 0.6 % (0.0-7.0); HEMATOCRIT 29.3 % (37.0-47.0); HEMOGLOBIN 10.6 g/dl (12.0-16.0); IMMATURE GRANULOCYTE % (AUTO) 0.6 % (0.0-5.0); LYMPHOCYTES # (AUTO) 1.1 K/uL (0.60-3.4); LYMPHOCYTES % (AUTO) 17.7 (10.0-50.0); MEAN CORPUSCULAR HEMOGLOBIN 33.5 pg (27.0-31.0); MEAN CORPUSCULAR HGB CONC 36.2 (31.8-35.4); MEAN CORPUSCULAR VOLUME 92.7 fl (81.0-99.0); MONOCYTES # (AUTO) 0.5 K/uL (0.4-2.0); MONOCYTES % (AUTO) 8.1 (0-10); NEUTROPHILS # (AUTO) 4.5 K/ul (2.0-6.9); NEUTROPHILS % (AUTO) 72.4; PLATELET COUNT 246 10^3/uL (140-440); RED BLOOD COUNT 3.16 10^6/ul (4.20-5.40); WHITE BLOOD COUNT 6.16 K/ul (4.6-10.2)
[2016-12-09 01:55] LABS: POTASSIUM 4.1 mmol/L (3.5-5.10)
[2016-12-09 01:56] LABS: ALBUMIN 3.3 g/dL (3.4-5.0); ALBUMIN/GLOBULIN RATIO 1.22; ANION GAP 11.1; BILIRUBIN,TOTAL 0.43 mg/dL (0.00-1.20); BUN/CREATININE RATIO 12.12; CREATININE 0.66 mg/dL (0.60-1.30)
[2016-12-09 02:02] LABS: TROPONIN I 0.011 ng/ml (0.0000-0.4000)
[2016-12-09] MEDS ORDERED: NON-FORMULARY MEDICATION (Losartan Potassium [Losartan Potassium] 50 MG) PO SCH (09:00)
[2016-12-09] MEDS ORDERED: FERROUS SULFATE 65 MG PO SCH (09:00)
[2016-12-09] MEDS ORDERED: NON-FORMULARY MEDICATION (Levothyroxine Sodium [Levothyroxine Sodium] 125 MCG) PO SCH ×22 (09:00)
[2016-12-09] MEDS ORDERED: LOVENOX SUBCUT SCH (09:00)
--- NOTE | 2016-12-09 09:39 | PCM.PROG ---
Attending Provider: ATTENDING PROVIDER: Dr. KVNG EPSTEIN DATE OF SERVICE: 12/09/16 SUBJECTIVE: This 76 year old WHITE/ F was hospitalized 12/08/16. The patient is admitted with shortness of breath, anxiety, hyponatremia, dehydration and is breathing better. The patient is not short of breath anymore. D. dimer is borderline positive. Because of the allergy to the dye, she is awaiting VQ scan. Both calf muscles are nontender, no swelling no redness, no clinical evidence of dVT. The patient is talking better than before. REVIEW OF SYSTEMS: CONSTITUTIONAL: No night sweats. No fatigue, malaise, lethargy. No fever or chills. HEENT: Eyes: No visual changes. No eye pain. No eye discharge. ENT: No runny nose. No epistaxis. No sinus pain. No odynophagia. No congestion. Mouth: Tongue is small. RESPIRATORY: No cough, no congestion. No hemoptysis. CARDIOVASCULAR: No angina symptoms. No CHF symptoms. No atypical chest pain for CAD. No palpitations. No shortness of breath. GASTROINTESTINAL: Appetite is not good (there is no one to prepare food at home) . No abdominal pain. No nausea or vomiting. No diarrhea or constipation. No hematemesis. No hematochezia. GENITOURINARY: No urgency. No frequency. No dysuria. No hematuria. No obstructive symptoms. No discharge. No pain. No significant abnormal bleeding. MUSCULOSKELETAL: No musculoskeletal pain; no joint swelling. NEUROLOGICAL: Awake, alert, oriented to time, place and person. No headache. No neck pain. No syncope. No seizures. No dizziness. PSYCHIATRIC: Not anxious. No depression. No suicidal thoughts. No homicidal thoughts. SKIN: No rash. No lesions. No wounds. ENDOCRINE: No unexplained weight loss. No weight gain. HEMATOLOGIC/LYMPHATIC: No anemia. No purpura. No petechiae. No prolonged or excessive bleeding. No palpable lymph nodes. PHYSICAL EXAMINATION: GENERAL: The patient is awake, alert and oriented, lying in bed in no distress. VITAL SIGNS: Temperature 97.8 F, Pulse 73, Respiratory Rate 16, BP 141/80, Pulse Ox 97% HEENT: Head normocephalic, atraumatic. Eyes: Extraocular muscles are intact. Pupils are equal, round and reactive to light and accommodation. Ears: No lesions. Nose appeared normal. Mouth: Tongue is small. No bleeding. No ulcers. Throat: No exudate or erythema. NECK: Supple. No JVD, no carotid bruit. No lymphadenopathy or thyromegaly. LUNGS: Clear to auscultation. Percussion note normal. Chest symmetrical. HEART: S1, S2, no S3. No murmurs. No cyanosis or clubbing. No ascites. Pulses: Dorsalis pedis and posterior tibial pulses +1 to +2 both sides. ABDOMEN: Soft. Non-tender. Bowel sounds active. No CVA tenderness. No mass felt. EXTREMITIES: No edema. Full range of motion of all extremities, equal. NEUROLOGIC: No focal deficit. Cranial nerves II through XII are grossly intact. No headache, no double vision or headache. SKIN: Not dry. Intact. Turgor-normal. LYMPHATIC: No palpable lymph nodes/no lymphedema. MUSCULOSKELETAL: Normal joints with no swelling. Muscle tone is normal. LAB REVIEW: 12/09/16 01:30 12/09/16 01:30 12/09/16 01:30: WBC 6.16, RBC 3.16 L, Hgb 10.6 L, Hct 29.3 L, MCV 92.7, MCH 33.5 H, MCHC 36.2 H, RDW Coeff of Rama 12.2, Plt Count 246, Immature Gran % (Auto ) 0.6, Neut % (Auto) 72.4, Lymph % (Auto) 17.7, [place] % (Auto) 8.1, Eos % (Auto) 0.6, Baso % (Auto) 0.6, Immature Gran # (Auto) 0.0, Neut # 4.5, Lymph # 1.1, [place] # 0.5, Eos # 0.0, Baso # 0.0, Sodium 127 L, Potassium 4.1, Chloride 96 L, Carbon Dioxide 24, Anion Gap 11.1, BUN 8, Creatinine 0.66, Estimated GFR (MDRD) 87.00, BUN/Creatinine Ratio 12.12, Glucose 100, Calcium 9.0, Total Bilirubin 0.43, AST 20, ALT 22, Alkaline Phosphatase 82 D, Total Creatine Kinase 20, Troponin I 0.0110, Total Protein 6.0, Albumin 3.3 L, Globulin 2.7, Albumin/ Globulin Ratio 1.22 ASSESSMENT: 1. Shortness of breath with elevated D.dimer to rule out pulmonary embolism. I doubt the patient has that as D. dimer is borderline. 2. Dehydration and malnutrition from poor oral intake food and fluids. 3. Anemia. 4. Hypertension. 5. Anxiety disorder. 6. Generalized osteoarthritis. 7. Hypothyroidism. PLAN: 1. Continue all medications like [place], Norvasc and Diazepam 2. Continue IV fluids 3. Continue Propranolol, Losartan, Pravachol and Lovenox. 4. Ultram for pain 5. The patient is followed by Dr. Portillo, ENT and Dr. Buckner, Department Store Door Greeter/ Oncologist Plan and coordination of the patient's care discussed in the presence of Residence Leasing Agent and nurse. CONDITION: Stable SCRIBED BY: JINNY AYALA, Leveling Machine Operator scribed while in presence of service performed by Dr. KVNG EPSTEIN on 12/09/16 ([id number])
--- NOTE | 2016-12-09 10:15 | NM ---
EXAM: Ventilation perfusion lung scan HISTORY: Short of air. Positive D-dimer. Allergic to contrast. COMPARISON: None of this type. Chest x-ray 12/08/2016. PROCEDURE: Ventilation: The patient was allowed to inhale from a reservoir of 31.9 mCi of 99 technetium DTPA a erosol. Subsequently anterior, posterior, lateral and anterior and posterior oblique images were ob tained. Perfusion: The patient was injected with 5.3 mCi of 99 technetium MAA intravenously after which ant erior, posterior, lateral and anterior and posterior oblique images were obtained. FINDINGS: Ventilation images demonstrate significant accumulation of aerosol in the central airways, greater on the right with decreased activity in the upper lung worrell bilaterally most probably due to underlying lung disease. The perfusion images demonstrate a generally matching pattern of activ ity with no segmental or subsegmental mismatched defects suggestive of pulmonary embolus. IMPRESSION: 1. Low probability of pulmonary embolus. 2. Findings compatible with underlying chronic lung disease. Results faxed to the department for transmission to the patient's physician/nurse at 10:08 a.m.
[2016-12-09 10:16] LABS: CREATINE KINASE 28 U/L
[2016-12-09] MEDS: FERROUS SULFATE PO SCH (11:45)
[2016-12-09] MEDS: INDERAL PO SCH ×2 (11:45→20:40)
[2016-12-09] MEDS: NORVASC PO SCH (11:49)
[2016-12-09] MEDS: COZAAR PO SCH (11:49)
[2016-12-09] MEDS: PRAVACHOL PO SCH (11:50)
[2016-12-09] MEDS: SYNTHROID PO SCH ×2 (11:51)
[2016-12-09] MEDS: ULTRAM PO SCH ×3 (11:52→20:41)
[2016-12-09] MEDS: SODIUM CHLORIDE 1,000 ML IV SCH (11:55)
[2016-12-09] MEDS: LOVENOX SUBCUT SCH (11:55)
[2016-12-09] MEDS: NON-FORMULARY MEDICATION (Propranolol Hcl [Propranolol Hcl] 40 MG) PO SCH ×22 (12:27)
--- NOTE | 2016-12-09 14:06 | US ---
EXAM: Bilateral lower extremity venous Doppler History: Elevated D-dimer, short of breath Technique: Multiple sonographic images through the bilateral lower extremities were obtained. [place] r duplex Doppler was used to interrogate vascular flow. Findings: The bilateral common femoral, greater saphenous, profunda, superficial femoral, popliteal , peroneal, posterior tibial and anterior tibial veins demonstrate spontaneous flow with normal comp ression and normal augmentation. Impression: No sonographic evidence for deep venous thrombosis.
[2016-12-09] MEDS ORDERED: NON-FORMULARY MEDICATION (Propranolol Hcl [Propranolol Hcl] 40 MG) PO SCH ×22 (21:00)
[2016-12-10] MEDS: SODIUM CHLORIDE 1,000 ML IV SCH ×3 (04:28→11:30)
[2016-12-10 05:36] LABS: BASOPHILS % (AUTO) 0.8 % (0.0-3.0); EOSINOPHILS # (AUTO) 0.1 K/ul (0.0-0.7); EOSINOPHILS % (AUTO) 1.4 % (0.0-7.0); HEMATOCRIT 29.3 % (37.0-47.0); HEMOGLOBIN 10.6 g/dl (12.0-16.0); IMMATURE GRANULOCYTE % (AUTO) 0.2 % (0.0-5.0); LYMPHOCYTES # (AUTO) 1.3 K/uL (0.60-3.4); LYMPHOCYTES % (AUTO) 24.1 (10.0-50.0); MEAN CORPUSCULAR HEMOGLOBIN 33.4 pg (27.0-31.0); MEAN CORPUSCULAR HGB CONC 36.2 (31.8-35.4); MEAN CORPUSCULAR VOLUME 92.4 fl (81.0-99.0); MONOCYTES # (AUTO) 0.6 K/uL (0.4-2.0); MONOCYTES % (AUTO) 11.2 (0-10); NEUTROPHILS # (AUTO) 3.2 K/ul (2.0-6.9); NEUTROPHILS % (AUTO) 62.3; PLATELET COUNT 243 10^3/uL (140-440); RED BLOOD COUNT 3.17 10^6/ul (4.20-5.40); WHITE BLOOD COUNT 5.18 K/ul (4.6-10.2)
[2016-12-10] MEDS: SYNTHROID PO SCH ×2 (05:48)
[2016-12-10 06:01] LABS: ALBUMIN 3.2 g/dL (3.4-5.0); ALBUMIN/GLOBULIN RATIO 1.23; ANION GAP 12.8; BILIRUBIN,TOTAL 0.51 mg/dL (0.00-1.20); BUN/CREATININE RATIO 9.83; CALCIUM 8.8 mg/dL (8.2-10.2); CREATININE 0.61 mg/dL (0.60-1.30); POTASSIUM 3.8 mmol/L (3.5-5.10); TOTAL PROTEIN 5.8 g/dL (5.8-8.1)
[2016-12-10] MEDS: ULTRAM PO SCH ×2 (10:29→15:50)
[2016-12-10] MEDS: PRAVACHOL PO SCH (10:29)
[2016-12-10] MEDS: NORVASC PO SCH (10:30)
[2016-12-10] MEDS: INDERAL PO SCH (10:30)
[2016-12-10] MEDS: COZAAR PO SCH (10:30)
[2016-12-10] MEDS: FERROUS SULFATE PO SCH (10:30)
[2016-12-10] MEDS: LOVENOX SUBCUT SCH (10:31)
[2016-12-10 11:18] VITALS: BP 120/76; TEMP 98
--- NOTE | 2016-12-10 12:18 | RS.BEDDYS ---
Subjective Number of treatment sessions: 1 Date of Evaluation: 12/10/16 Date of Onset/Injury/Change in Status: 12/08/16 Treatment Diagnosis: SOA Current Level of Function: This 76 year old female lives in an apartment with her sister. She currently receives home health services 1 day a week to assist with transportation and appointments. 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 She consumes liquids and boost as her primary means of nutrition. Current Diet: Liquids, boost supplement Current Subjective/complaints:: Pt reports she has dentures that she does not wear due to the fit and current sores in her oral cavity. She only consumes liquids and nutrition supplements, which she prepares herself. The patient has had a weight loss over twenty pounds, which has alerted dietary and MD for speech therapy consult. CASINO CAGE SUPERVISOR identified moderate to severe lingual restrictions, and moderate laryngeal restrictions with movement and range of motion. However, pt can safely swallow thin liquids and puree diet texture without overt s/s of aspiration. Medical History Comments:: Anemia, Laryngeal, oral, lingual cancer, anxiety, HTN , Hypothyroid, weight loss. Hx Home Medications: refer to medications for complete current list. Patient's Goals: To maintain current weight. To consume safest and least restrictive diet texture. General Information - General Patient Orientation: Person, Place, Time, Situation Ability to Follow Directions: Excellent Oral Expression Ability: Mild Impairment (Slurred speech due to decreased lingual ROM.) Oral-Facial Assessment - Dental/Labial Teeth Comment: Edentulous Lip Protrusion: Normal - Lingual Protrusion: Reduced ROM Retraction: Reduced ROM Tip Lateralization: Reduced ROM Repeated Tip Lateralization: Reduced ROM Tip Elevation: Reduced ROM Repeated Tip Elevation: Reduced ROM Comments: Lingual movements are moderately restricted. Lingual function can maintain a moist, puree diet texture. Food Presentation - Solids Food Presented: Pureed Behaviors/Comments: Pt required two drinks of thin liquids to assist with swallow due to dry oral cavity. Pt had no overt s/s of aspiration. Pt had not consumed puree diet texture in the home environment, however was agreeable to trial purees in the hospital. - Liquids Liquid Presented: Thin Behaviors/Comments: Open cup. No overt s/s of aspiration. required two swallows. - Recommendations: Dysphagia Evaluation Dietary Recommendations: Dysphagia Pureed Comments:: Puree diet texture as tolerated and accepted by patient with thin liquids. Liquids as supplements. Dysphagia Swallow Precautions/Strategies: Sitting Upright (90 deg), No Straw, Liquids from Cup, Alternate Liquids/Solids - Summary Dysphagia Evaluation Summary: Pt demonstrates moderate-severe orapharyngeal dysphagia as characterized by lingual and laryngeal ROM. Pt can maintain puree diet texture with thin liquids over small, frequent meals. Pt demonstrates independence with swallow safety and awareness of textures. No overt s/s of aspiration were noted at the bedside. CASINO CAGE SUPERVISOR recommends small frequent meals with two liquids for supplements to dry oral cavity. Monitor lung sounds for changes. Further Therapy Indicated?: No Functional Reporting G Codes: Current CL Discharge CL Severity Impairment Rationale: Pt is on puree diet texture with thin liquids. Moderate-severe deficits with lingual ROM. Plan Duration of Treatment: One Time Treatment Frequency of Treatment: One time treatment Anticipated Discharge Destination: Home Comments: CASINO CAGE SUPERVISOR recommends increased home health support for return home. Jetting Machine Operator to continue treatment and education for puree diet texture and increase variety of meals for nurtrition.
--- NOTE | 2016-12-10 14:04 | CM.DICTOOL ---
ADMISSION: 12/08/16 19:25 DISCHARGE: 12/10/16 DATE OF SERVICE: 12/10/16 FINAL DIAGNOSIS DEHYDRATION HYPONATREMIA, IMPROVED ANXIETY DYSPHAGIA ANEMIA SQUAMOUS CELL TONGUE CANCER, ACUTE; S/P SMALL PORTION RESECTION, 2001 LEFT RETINAL TEAR (DR. ORDONEZ) HYPERTENSION GERD OSTEOARTHRITIS LAST VITALS Temp Pulse Resp BP Pulse Ox 98.0 F 92 H 17 120/76 98 12/10/16 10:00 12/10/16 10:00 12/10/16 10:00 12/10/16 10:00 12/10/16 10:00 ACTIVE MEDICATIONS Acetaminophen (Tylenol) 500 mg PO DAILY PRN PRN Reason: PAIN OR FEVER Acetaminophen/Hydrocodone Bitart ([place] 7.5-325) 1 tab PO Q8HR PRN PRN Reason: PAIN Amlodipine Besylate (Norvasc) 5 mg PO DAILY [facility] Last Admin: 12/10/16 10:30 Dose: 5 mg Clonazepam 0.25 MG po BID PRN ANXIETY (RX by Dr. Galaviz--ER) Diazepam (Valium) 5 mg PO 2-4XD PRN PRN Reason: Anxiety Ferrous Sulfate (Ferrous Sulfate) 65 mg PO DAILY [facility] Last Admin: 12/10/16 10:30 Dose: 324 mg Levothyroxine Sodium (Synthroid) 125 mcg PO QDAC [facility] Last Admin: 12/10/16 05:48 Dose: 100 mcg Losartan Potassium (Cozaar) 50 mg PO DAILY [facility] Last Admin: 12/10/16 10:30 Dose: 50 mg Pravastatin Sodium (Pravachol) 40 mg PO DAILY [facility] Last Admin: 12/10/16 10:29 Dose: 40 mg Propranolol HCl (Inderal) 40 mg PO BID [facility] Last Admin: 12/10/16 10:30 Dose: 40 mg Tramadol HCl (Ultram) 50 mg PO TID [facility] Last Admin: 12/10/16 10:29 Dose: 50 mg ALLERGIES IV constrast Allergy (Uncoded 12/08/16 18:18) NEW PRESCRIPTIONS: NO NEW PRESCRIPTIONS SMOKING: NONSMOKER DISEASE SPECIFIC EDUCATION: PUREED DIET HOME MEDICATIONS FOLLOW UP ANXIETY HYPONATREMIA LAB REVIEW: 12/10/16 05:00 12/10/16 05:00 12/10/16 05:00: WBC 5.18, RBC 3.17 L, Hgb 10.6 L, Hct 29.3 L, MCV 92.4, MCH 33.4 H, MCHC 36.2 H, RDW Coeff of Rama 12.3, Plt Count 243, Immature Gran % (Auto ) 0.2, Neut % (Auto) 62.3, Lymph % (Auto) 24.1, [place] % (Auto) 11.2 H, Eos % ( Auto) 1.4, Baso % (Auto) 0.8, Immature Gran # (Auto) 0.0, Neut # 3.2, Lymph # 1.3, [place] # 0.6, Eos # 0.1, Baso # 0.0, Sodium 130 L, Potassium 3.8, Chloride 97 L, Carbon Dioxide 24, Anion Gap 12.8, BUN 6 L, Creatinine 0.61, Estimated GFR (MDRD) 95.00, BUN/Creatinine Ratio 9.83, Glucose 88, Calcium 8.8, Total Bilirubin 0.51, AST 20, ALT 21, Alkaline Phosphatase 82, Total Protein 5.8, Albumin 3.2 L, Globulin 2.6, Albumin/Globulin Ratio 1.23 PLAN: DISCHARGE HOME TODAY RETURN TO SEE DR. EPSTEIN IN 5-7 DAYS. PLEASE CALL HIS OFFICE TO SCHEDULE YOUR APPOINTMENT [phone] KEEP YOUR APPOINTMENT WITH DR. PENG ON 12/12/16 RESUME YOUR HOME MEDICATIONS PER LIST PROVIDED BY THE NURSING STAFF NO NEW PRESCRIPTIONS ACTIVITY: GET PLENTY OF REST AT HOME. GRADUALLY INCREASE YOUR ACTIVITY ACCORDING TO YOUR TOLERATION DIET: RESUME HOME DIET PUREED FOODS INSTRUCTED BY [employer]BLE INSTALLATION HELPER SUMMARY: THE PATIENT IS ALERT AND ORIENTED X3. SHE CURRENTLY RESIDES AT HOME ALONE. HER SISTER AND NEIGHBORS ARE SUPPORTIVE OF HER NEEDS WHEN NECESSARY. SHE UTILIZES [employer] THREE DAYS PER WEEK FOR A TOTAL OF 8 HOURS WEEKLY. SHE ALSO UTILIZES [employer] [facility] FOR NURSING ASSESSMENT. SHE HAS A ROLLING WALKER TO ASSIST WITH AMBULATION. SHE DESIRES TO RETURN TO HER HOME AT DISCHARGE. SHE HAS DECLINED RETIREMENT PLACEMENT DURING HER COURSE OF CHEMOTHERAPY TREATMENTS. POSSIBLE FUTURE FEEDING TUBE PLACEMENT HAS BEEN DISCUSSED WITH THE PATIENT. SHE IS ADAMANTLY AGAINST ARTIFICIAL FEEDINGS AT ANY TIME. SHE IS HAPPY WITH THE COMPLETE LIQUID DIET SHE HAS BEEN FOLLOWING DESPITE HER WEIGHT LOSS. THE MARBLE INSTALLATION HELPER AND SPEECH THERAPIST HAVE EVALUATED HER. RECOMMENDATIONS FOR PUREED FOODS TO PROVIDE MORE VARIETY HAVE BEEN PRESENTED TO THE PATIENT. SHE HAS ALSO RECEIVED TEACHING REGARDING HOW TO PUREE FOODS AND WHICH FOODS ARE NATURALLY PUREED CONSISTENCY. SHE IS PREPARING FOR HER 9 WEEK COURSE OF IV CHEMOTHERAPY THROUGH DR. PENG'S OFFICE IN [place], [place] BEGINNING 12/12/16. SHE REQUESTED DISCHARGE TODAY. HER CLINICAL STATUS IS IMPROVED INCLUDING HER ELECTROLYTES. HER ANXIETY IS ALSO IMPROVED. KVNG EPSTEIN M.D.
--- NOTE | 2016-12-11 11:01 | PN ---
DATE OF SERVICE: 12/10/16 SUBJECTIVE: The patient is a 76 year old white female hospitalized with shortness of breath and positive D-Dimer. The patient had some anxiety related to her C of the tongue practically not able to eat solid food but she is on full liquids and able to eat but she is eating by herself and probably neglecting to eat. REVIEW OF SYSTEMS: CONSTITUTIONAL: No night sweats. No fatigue, malaise, lethargy. No fever or chills. HEENT: Eyes: No visual changes. No eye pain. No eye discharge. ENT: No runny nose. No epistaxis. No sinus pain. No sore throat. No odynophagia. No congestion. RESPIRATORY: No cough, no congestion. No hemoptysis. CARDIOVASCULAR: No angina symptoms. No CHF symptoms. No atypical chest pain for CAD. No palpitations. No shortness of breath. GASTROINTESTINAL: No abdominal pain. No nausea or vomiting. No diarrhea or constipation. No hematemesis. No hematochezia. GENITOURINARY: No urgency. No frequency. No dysuria. No hematuria. No obstructive symptoms. No discharge. No pain. No significant abnormal bleeding. MUSCULOSKELETAL: No musculoskeletal pain; no joint swelling. NEUROLOGICAL: No headache. No neck pain. No syncope. No seizures. No dizziness. PSYCHIATRIC: Not anxious. No depression. No suicidal thoughts. No homicidal thoughts. SKIN: No rash. No lesions. No wounds. ENDOCRINE: No unexplained weight loss. No weight gain. HEMATOLOGIC/LYMPHATIC: No anemia. No purpura. No petechiae. No prolonged or excessive bleeding. No palpable lymph nodes. PHYSICAL EXAMINATION: GENERAL: The patient is oriented to time, place and person. VITAL SIGNS: Temperature 97.5, pulse 70, respiratory 16, blood pressure 145/77 and pulse ox 100%. HEENT: Head normocephalic, atraumatic. Eyes: Extraocular muscles are intact. Pupils are equal, round and reactive to light and accommodation. Ears: No lesions. Nose appeared normal. Throat: No exudate or erythema. Tongue is small the lateral margin of the left side is taken off with surgery. NECK: Supple. No JVD, no carotid bruit. No lymphadenopathy or thyromegaly. LUNGS: Decreased breath sounds but clear to auscultation. Percussion note normal. Chest symmetrical. HEART: S1, S2, no S3. No murmurs. No cyanosis or clubbing. No ascites. Pulses: Dorsalis pedis and posterior tibial pulses +1 to +2 both sides. ABDOMEN: Soft. Nontender. Bowel sounds active. No CVA tenderness. No mass felt. EXTREMITIES: No edema. Full range of motion of all extremities, equal. NEUROLOGIC: No focal deficit. Cranial nerves II through XII are grossly intact. No headache, no double vision or headache. SKIN: Not dry. Intact. Turgor - normal. LYMPHATIC: No palpable lymph nodes/no lymphedema. MUSCULOSKELETAL: Normal joints with no swelling. Muscle tone is normal. LABS: Hgb 10.6, hct 29, WBC 5,100 normal differential, creatinine 0.6, BUN 6, potassium 3.8, BNP 133. ASSESSMENT: 1. Dehydration 2. Shortness of breath 3. Malnutrition 4. Anemia 5. 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 Dysphagia needs to be evaluated. Will order the dysphagia at bedside 2. Gastrostomy feeding tube maybe needed for better nutrition 3. Encouraged to drink Boost, a lot of liquids like soup 4. She is somewhat agreeable for gastrostomy tube 5. Dr. Buckner to see her next week. 6. The patient may have to undergo chemotherapy 7. The patient is also followed by Dr. Portillo ENT surgeon. 8. The patient will be referred to route relief driver when things are ready for possible evaluation for gastrostomy. 9. The patient is also willing to go and consider retirement which may improve her nutrition and may not have to go through gastrostomy. CONDITION: STABLE TIME SPENT: More than 30 minutes. Plan and coordination of the patient's care discussed in the presence of nurse. LUKE
--- NOTE | 2016-12-11 14:25 | DS ---
DATE OF SERVICE: 12/10/16 FINAL DIAGNOSIS: 1. Shortness of breath, etiology likely deterioration of overall general health with possibility of some aspiration at times with chronic lung disease 2. C of the tongue, location extension of C of the jaw several years ago. The C of the tongue diagnosed recently. 3. Dysphagia with weight loss 4. Anemia 5. Malnutrition 6. Hypertension 7. Dyslipidemia 8. Generalized anxiety disorder 9. Severe DJD of the spine 10.Hypothyroidism DISCHARGE INSTRUCTIONS: Discharge home today. Return to see Dr. Gusman in 5-7 days. Keep appointment with Dr. Buckner. Resume home medications as per list provided. MEDICATIONS AT DISCHARGE: Amlodipine 5mg PO daily Ferrous Sulfate 65mg PO daily Levothyroxine 125 PO daily Losartan 50mg PO daily Pravastatin 40mg Po daily Propranolol 40mg PO twice a day Tramadol 50mg twice a day Valium 5mg PO twice a day PRN Cypress 7.5 three times a day PRN NEW PRESCRIPTIONS: No new medications DIET INSTRUCTIONS: Resume home diet Pureed foods as instructed by senior java developer ACTIVITY: Get plenty of rest at home. Gradually increase activity as tolerated. SMOKING: Non-smoker DISEASE SPECIFIC EDUCATION: Diet Followup Weight loss HOSPITAL COURSE: The patient is a 76 year old white female was hospitalized with shortness of breath. The patient underwent pulmonary protocol per CT scan of the chest, pulmonary embolism protocol. The patient's venous scan and CT scan was negative for pulmonary embolism. The patient was IV fluids for dehydration and the patient has Malnutrition and weight loss secondary to the C of the tongue with practically atrophy of the tongue with problems swallowing. The patient has been scheduled to have bedside swallowing study. The patient has also been made aware of possibility of having gastrostomy tube placement which she seems to understand and would consider. The patient is advised to go to nurse home type of placement or assisted living which she has declined. The patient lives by herself and not able to cook proper food that she should eat at present time. The patient is strongly advised to followup with Dr. Portillo ENT surgeon and she has an appointment with Dr. Buckner in next couple of days. LABS: Hgb 10.6, hct 29, WBC 5,100 normal differential, creatinine 0.6, BUN 6, potassium 3.8. TIME SPENT: More than 60 minutes. MTDD
--- NOTE | 2016-12-11 14:26 | PN ---
12/08/16: Level 5 12/09/16: Intermediate 12/10/16: D as in discharge MTDD
--- NOTE | 2017-01-15 08:58 | HP ---
DATE OF SERVICE: 12/08/16 REASON FOR HOSPITALIZATION/HISTORY OF PRESENT ILLNESS: The patient underwent outpatient procedure be Dr. Portillo for resection of the tongue due to carcinoma of the tongue in the under post op care she became hypotensive with blood pressures ranging 70/50 and she was also found be anemic with hgb of 10.4. She was extreme pain and she did not have anyone to take care of her at home and she was unable to eat. She was experiencing extreme weakness as well. She was subsequently admitted to our care due to shortness of breath, weakness and for pain control along with dehydration and anxiety. REVIEW OF SYSTEMS: CONSTITUTIONAL: No night sweats. No fatigue, malaise, lethargy. No fever or chills. Weakness. HEENT: Eyes: No visual changes. No eye pain. No eye discharge. ENT: No runny nose. No epistaxis. No sinus pain. No sore throat. No odynophagia. No ear pain. No congestion. Tongue swelling and pain. Unable to eat due to pain. Difficulty swallowing. RESPIRATORY: No cough, no congestion. No hemoptysis. No shortness of breath. CARDIOVASCULAR: No angina symptoms. No CHF symptoms. No atypical chest pain for CAD. No palpitations. No orthopnea. GASTROINTESTINAL: No abdominal pain. Nausea. No vomiting. No diarrhea or constipation. No hematemesis. No hematochezia. GENITOURINARY: No urgency. No frequency. No dysuria. No hematuria. No obstructive symptoms. No discharge. No pain. No significant abnormal bleeding. MUSCULOSKELETAL: No musculoskeletal pain. No joint swelling. No arthritis. Weakness. NEUROLOGICAL: No headache. No neck pain. No syncope. No seizures. No dizziness. PSYCHIATRIC: Anxious. No depression. No suicidal thoughts. No homicidal thoughts. SKIN: No rash. No lesions. No wounds. ENDOCRINE: No unexplained weight loss. No weight gain. HEMATOLOGIC/LYMPHATIC: No anemia. No purpura. No petechiae. No prolonged or excessive bleeding. No palpable lymph nodes. PERSONAL/FAMILY/SOCIAL HISTORY: The patient is single. Non-smoker and no alcohol. Family History is significant for Cardiac disorders and cancer. 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 Eyes: Extraocular muscles are intact. Pupils are equal, round and reactive to light and accommodation. Ears: No lesions. Nose appeared normal. Throat: No exudate or erythema. Tongue swelling due to statue post surgery. No bleeding. NECK: Supple. No JVD, no carotid bruit. No lymphadenopathy or thyromegaly. LUNGS: Clear with diminished breath sounds bilaterally. Percussion note normal. Chest symmetrical. HEART: S1, S2, no S3. No murmurs. No cyanosis or clubbing. No ascites. Pulses: Dorsalis pedis and posterior tibial pulses +1 to +2 both sides. ABDOMEN: Soft. Nontender. Bowel sounds times four quadrants. No CVA tenderness. No mass felt. EXTREMITIES: No edema. Full range of motion of all extremities, equal. No redness. No calf tenderness. Negative Kimbrough's signs. NEUROLOGIC: No focal deficit. Cranial nerves II through XII are grossly intact. No headache, no double vision or headache. The patient is alert and oriented however anxious. SKIN: Not dry. Intact except for incision on the tongue. Turgor - normal. LYMPHATIC: No palpable lymph nodes/no lymphedema. MUSCULOSKELETAL: Normal joints with no swelling. Muscle tone is normal. LABS: Hgb 10.6, hct 29, creatinine 0.6, BUN 6, potassium 3.8, sodium 133. ASSESSMENT: 1. Dehydration 2. Shortness of breath 3. Malnutrition 4. Anemia 5. Status post resection of the tongue 6. Carcinoma of the tongue. PLAN: 1. Admit the patient 2. Place on routine telemetry orders 3. Given IV fluids for rehydration 4. Toradol as well as Morphine for pain 5. Regular diet as tolerated with full liquids 6. Continue home medication as able to take 7. CBC and CMP daily 8. Chest x-ray Will follow closely. TIME SPENT: More than 70 minutes. [facility]
== END 2016-12-10 16:06 | disposition home or self-care (01) | DRG 204 ==
LOC: ED 18:01 → MEDSURG B 19:25
PROVIDERS: ADMIT Internal Medicine; ATTEND Internal Medicine
DX: R06.02 Shortness of breath (principal); E87.1 Hypo-osmolality and hyponatremia; E46 Unspecified protein-calorie malnutrition; C02.0 Malignant neoplasm of dorsal surface of tongue; F41.8 Other specified anxiety disorders; K13.79 Other lesions of oral mucosa; I10 Essential (primary) hypertension; R13.10 Dysphagia, unspecified; D64.9 Anemia, unspecified; E78.5 Hyperlipidemia, unspecified; M47.9 Spondylosis, unspecified; E03.9 Hypothyroidism, unspecified; Z85.89 Personal history of malignant neoplasm of other organs and systems; Z79.899 Other long term (current) drug therapy
CPT/HCPCS: 36415; 80053; 82550; 82803; 83605; 83880; 84145; 84484; 85025; 85379; 87040; 87081; 93005; 93010; 96360; 96375; 97802; 99223; 99232; 99239; 99284

== ENCOUNTER 2017-02-25 09:14 | Outpatient (CLI) ==
[2017-02-25] MEDS ORDERED: SODIUM CHLORIDE 500 ML IV STA (09:48)
[2017-02-25 10:08] VITALS: BP 124/64; TEMP 97.6
--- NOTE | 2017-02-25 10:09 | DI ---
EXAM: Two views of the chest. History: Pneumothorax. Comparison: Chest radiograph 12/08/2016 Findings: Heart size is within normal limits. Hyperinflation with increase in retrosternal clear sp connie. Small right pleural effusion. No focal consolidation. No pneumothorax. Partially visualized rounded opacity projecting over the left hemidiaphragm. This is stable. Impression: No definite acute infiltrates. Small right pleural effusion. No pneumothorax.
== END 2017-02-25 09:15 | disposition home or self-care (01) ==
LOC: OPMED 09:14
PROVIDERS: ATTEND Internal Medicine Hematology & Oncology
DX: E87.1 Hypo-osmolality and hyponatremia (principal); C06.9 Malignant neoplasm of mouth, unspecified; R13.10 Dysphagia, unspecified; E07.9 Disorder of thyroid, unspecified; R60.0 Localized edema; I10 Essential (primary) hypertension; F41.9 Anxiety disorder, unspecified; M19.90 Unspecified osteoarthritis, unspecified site; M62.81 Muscle weakness (generalized); Z87.09 Personal history of other diseases of the respiratory system; Z92.3 Personal history of irradiation
CPT/HCPCS: 96365; 96366

== ENCOUNTER 2017-07-11 11:40 | Outpatient (CLI) | END 2017-07-11 11:41 | disposition home or self-care (01) | LOC: LAB 11:40 | PROVIDERS: ATTEND Internal Medicine Hematology & Oncology | DX: E07.9 Disorder of thyroid, unspecified (principal); C01 Malignant neoplasm of base of tongue | CPT/HCPCS: 36415; 80053; 84443; 85025 ==

== ENCOUNTER 2017-07-18 09:50 | Outpatient (CLI) | END 2017-07-18 09:51 | disposition home or self-care (01) | LOC: LAB 09:50 | PROVIDERS: ATTEND Internal Medicine Hematology & Oncology | DX: C01 Malignant neoplasm of base of tongue (principal); E07.9 Disorder of thyroid, unspecified | CPT/HCPCS: 36415; 80053; 84443; 85025 ==

== ENCOUNTER 2017-08-21 14:30 | Outpatient (CLI) | payer OTHER | END 2017-08-21 14:31 | disposition home or self-care (01) | LOC: LAB 14:30 | PROVIDERS: ATTEND Internal Medicine Hematology & Oncology | DX: C01 Malignant neoplasm of base of tongue (principal); D53.9 Nutritional anemia, unspecified | CPT/HCPCS: 36415; 82728; 83540; 83550; 85025 ==

== ENCOUNTER 2017-09-18 11:55 | Outpatient (CLI) | payer OTHER | END 2017-09-18 11:56 | disposition home or self-care (01) | LOC: LAB 11:55 | PROVIDERS: ATTEND Internal Medicine Hematology & Oncology | DX: C01 Malignant neoplasm of base of tongue (principal); D53.9 Nutritional anemia, unspecified | CPT/HCPCS: 36415; 82728; 83540; 83550; 85025 ==

== ENCOUNTER 2017-10-16 14:58 | Outpatient (CLI) | END 2017-10-16 14:59 | disposition home or self-care (01) | LOC: LAB 14:58 | PROVIDERS: ATTEND Internal Medicine Hematology & Oncology | DX: C01 Malignant neoplasm of base of tongue (principal); D53.9 Nutritional anemia, unspecified | CPT/HCPCS: 36415; 82728; 83540; 83550; 85025 ==

== ENCOUNTER 2017-12-10 08:02 | Day surgery (SDC) ==
[2017-12-10] MEDS ORDERED: ZOFRAN 4 MG/2 ML ONE (08:15)
[2017-12-10] MEDS ORDERED: DIPRIVAN 20 ML VIAL IVP ONE (08:15)
[2017-12-10] MEDS ORDERED: DECADRON 4 MG/ML SDV ONE (08:15)
[2017-12-10] MEDS ORDERED: VERSED ONE (08:15)
[2017-12-10] MEDS ORDERED: SUBLIMAZE ONE (08:15)
[2017-12-10 08:17] VITALS: TEMP 98.6
[2017-12-10] MEDS ORDERED: NEO-SYNEPHRINE OT PRN (08:40)
[2017-12-10 15:31] VITALS: BP 122/65
--- NOTE | 2017-12-31 11:30 | OP ---
PREOPERATIVE DIAGNOSIS: CARCINOMA BASE OF TONGUE POSTOPERATIVE DIAGNOSIS: SAME OPERATION: DIRECT LARYNGOSCOPY AND BIOPSY PROCEDURE: The patient was taken to surgery, placed on the table and general anesthesia was administered. The anterior larygoscope was inserted down to the level of the vocal cords which appeared to be free of disease. The false cords likewise free of disease. Both piriform sinuses were normal. The epiglottis likewise showed no disease. There was post surgical and x-ray changes of the base of the tongue and numerous biopsies were taken of this area as well as the retromolar trigon area. The patient was then extubated and returned to the recovery room in satisfactory condition. The specimen is being sent off to pathology. [facility]
== END 2017-12-10 10:00 | disposition home or self-care (01) ==
LOC: SURG 08:02
PROVIDERS: ATTEND Otolaryngology
DX: K13.70 Unspecified lesions of oral mucosa (principal)

== ENCOUNTER 2018-05-11 10:01 | Outpatient (CLI) ==
[2018-05-11] MEDS: SODIUM CHLORIDE 500 ML IV SCH ×3 (10:40→15:19)
[2018-05-11] MEDS ORDERED: SODIUM CHLORIDE 500 ML IV STA (10:40)
[2018-05-11 11:32] VITALS: BP 173/88; TEMP 98.2
== END 2018-05-11 10:02 | disposition home or self-care (01) ==
LOC: OPMED 10:01
PROVIDERS: ATTEND Internal Medicine Hematology & Oncology
DX: E87.1 Hypo-osmolality and hyponatremia (principal); C01 Malignant neoplasm of base of tongue
CPT/HCPCS: 96360

== ENCOUNTER 2018-07-21 08:42 | Outpatient (CLI) | payer OTHER | END 2018-07-21 08:43 | disposition home or self-care (01) | LOC: LAB 08:42 | PROVIDERS: ATTEND Internal Medicine Hematology & Oncology | DX: C01 Malignant neoplasm of base of tongue (principal); E78.5 Hyperlipidemia, unspecified; E87.1 Hypo-osmolality and hyponatremia; E61.1 Iron deficiency; D53.9 Nutritional anemia, unspecified; D64.9 Anemia, unspecified | CPT/HCPCS: 36415; 82728; 83540; 83550 ==

== ENCOUNTER 2018-08-01 19:27 | Outpatient (CLI) | END 2018-08-01 19:46 | disposition short-term general hospital (02) | LOC: AMBL 19:27 | PROVIDERS: ATTEND Family Medicine | DX: Z43.1 Encounter for attention to gastrostomy (principal) ==

== ENCOUNTER 2018-09-14 10:07 | Outpatient (CLI) | payer OTHER | END 2018-09-14 10:08 | disposition home or self-care (01) | LOC: LAB 10:07 | PROVIDERS: ATTEND Internal Medicine Hematology & Oncology | DX: C01 Malignant neoplasm of base of tongue (principal); E78.5 Hyperlipidemia, unspecified; E87.1 Hypo-osmolality and hyponatremia; E61.1 Iron deficiency; D53.9 Nutritional anemia, unspecified; D64.9 Anemia, unspecified | CPT/HCPCS: 36415; 82728; 83540; 83550 ==

== ENCOUNTER 2018-10-13 08:38 | Outpatient (CLI) | END 2018-10-13 08:39 | disposition home or self-care (01) | LOC: LAB 08:38 | PROVIDERS: ATTEND Internal Medicine Hematology & Oncology | DX: C01 Malignant neoplasm of base of tongue (principal); E61.1 Iron deficiency; D53.9 Nutritional anemia, unspecified | CPT/HCPCS: 36415; 82728; 83540; 83550 ==

== ENCOUNTER 2019-01-01 22:03 | Outpatient (CLI) | payer OTHER | END 2019-01-01 22:24 | disposition short-term general hospital (02) | LOC: AMBL 22:03 | PROVIDERS: ATTEND Emergency Medicine | DX: R53.1 Weakness (principal); R68.89 Other general symptoms and signs; C02.9 Malignant neoplasm of tongue, unspecified; R47.9 Unspecified speech disturbances; R40.2411 Glasgow coma scale score 13-15, in the field [EMT or ambulance] ==

== ENCOUNTER 2019-01-04 11:28 | Outpatient (CLI) | payer OTHER | END 2019-01-04 11:47 | disposition short-term general hospital (02) | LOC: AMBL 11:28 | PROVIDERS: ATTEND Internal Medicine | DX: R06.02 Shortness of breath (principal); R53.1 Weakness; C14.0 Malignant neoplasm of pharynx, unspecified; R47.89 Other speech disturbances; Z98.890 Other specified postprocedural states ==

== ENCOUNTER 2019-01-09 06:26 | Outpatient (CLI) ==
[2019-01-09 06:53] VITALS: BMI 29.6
== END 2019-01-09 06:33 | disposition critical access hospital (66) ==
LOC: AMBL 06:26
PROVIDERS: ATTEND Internal Medicine Geriatric Medicine
DX: R53.1 Weakness (principal); Z93.1 Gastrostomy status

== ENCOUNTER 2019-01-09 06:43 | Inpatient (IN) ==
[2019-01-09] MEDS ORDERED: SODIUM CHLORIDE 1,000 ML IV STA (07:47)
--- NOTE | 2019-01-09 08:20 | DI ---
EXAM: Two-view chest HISTORY: Cough TECHNIQUE: Frontal and lateral views of the chest were obtained. Comparison 02/25/2017. FINDINGS: The heart is stable size. Lungs are clear. The pulmonary vasculature appears normal. Th e osseous structures and mediastinal contours are normal. IMPRESSION: No active cardiopulmonary disease.
--- NOTE | 2019-01-09 08:46 | CT ---
EXAM: CT scan of the head without contrast HISTORY: Pain TECHNIQUE: Helical imaging of the head was performed without contrast. 5 mm thin axial images and c oronal and sagittal images were provided for interpretation. FINDINGS: The lateral ventricles and cortical sulci are normal. No acute hemorrhages are seen. The re is no mass effect. Basal cisterns are patent. The calvarium appears normal. Remainder of the pa ranasal sinuses and mastoid air cells are clear. IMPRESSION: No acute intracranial abnormalities are seen. Chronic sinusitis.
--- NOTE | 2019-01-09 08:55 | CT ---
EXAM: CT scan of the abdomen and pelvis without contrast HISTORY: pain TECHNIQUE: Helical imaging of the abdomen pelvis was performed without intravenous contrast. Oral c ontrast was given. 3 mm thin axial images and coronal and sagittal reconstructions were provided for interpretation. Comparison none. FINDINGS: The liver, spleen, pancreas, adrenal glands appear normal. The proximal ureters are emir l size. There is a cyst seen arising from the upper pole of the left kidney measuring 5.6 cm AP, 6.1 cm transverse. The small and large bowel loops are normal caliber. A percutaneous gastrostomy cath eter is identified within the lumen of the stomach. There is no free air. The helical images obtained through the pelvis demonstrate a normal appearance of the rectum, urinary bladder. There is no free fluid seen within the pelvis. Numerous diverticula are seen throughout t he descending colon and sigmoid colon without acute inflammation. The appendix was not well seen. N o definite inflammatory changes are seen in the right lower quadrant. Lung bases are clear. No lyti c or blastic lesions are seen within the osseous structures. IMPRESSION: There is no bowel obstruction or acute inflammatory change seen within the abdomen and p maryana. Diffuse diverticular disease of the distal colon without acute inflammation. There is no ureteral obstruction.
[2019-01-09] MEDS ORDERED: LOTRIMIN TP SCH (10:00)
[2019-01-09] MEDS ORDERED: VALIUM PO PRN (10:00)
[2019-01-09] MEDS ORDERED: TYLENOL PO PRN (10:00)
[2019-01-09] MEDS ORDERED: NORCO 5-325 PO PRN (10:00)
--- NOTE | 2019-01-09 10:05 | ED.PDOC ---
General ED Provider: Dr. SHAAN MEDRANO Chief Complaint: Weakness Stated Complaint: WEAKNESS Time Seen by Physician: 07:00 Mode of Arrival: Ambulance Information Source: Patient, EMT Exam Limitations: No limitations Primary Care Provider: KVNG EPSTEIN Nursing and Triage Documentation Reviewed and Agree: Yes Does patient meet sepsis criteria?: No System Inflammatory Response Syndrome: Not Applicable Sepsis Protocol: For patient's 13 years and over: Temp is 96.8 and below OR 101 and greater Pulse >90 BPM Resp >20/minute Acutely Altered Mental Status Are patient's symptoms suggestive of a new infection, such as: -Pneumonia -Skin, Soft Tissue -Endocarditis -UTI -Bone, Joint Infection -Implantable Device -Acute Abdominal Infection -Wound Infection -Meningitis -Blood Stream Catheter Infection -Unknown Neurological Complaint Exam - Weakness Complaint/Exam Last Known Well: 2 DAYS Onset: Gradual Duration: 2 DAYS Symptoms Are: Still present Timing: Intermittent Episodes Lasting: Days Initial Severity: Moderate Current Severity: Mild Character: Reports: Lightheaded, Weak Aggravating: Reports: Headache Alleviating: Reports: Rest Associated Signs and Symptoms: Denies: Nausea, Vomiting, Diaphoresis, Tinnitus, Chest pain, Short of air, Palpitations, Unsteady gait, GI blood loss, Visual changes, Decreased oral intake, Change in medication, Change in diet, OTC meds, Loss of balance Cardiac Risk Factors: Reports: Hypertension, Elevated lipids CVA Risk Factors: Reports: Hypertension JVD Present: No Carotid Bruit Present: No Rectal Heme Positive: No Glascow Coma Scale (see protocol): 15 Nystagmus Present: No Gag Reflex Present: Yes Meningeal Signs Positive: No Focal Weakness: Present: None Focal Sensory Loss: Present: None Gait: Normal [id number]: Normal Findings Romberg Test Positive: No (STOOD FOR UP RIGHT CHEST AND OBSERVED BY MJamal) Babinski Sign: Negative Right, Negative Left Heel to Toe Normal: No Rice-Hallpike Test Positive: No Differential Diagnoses: Hypovolemia, Metabolic abnormalities Quality Indicators for Cardiac Chest Pain: EKG in 10min. Quality Indicators for AMI: EKG in 10min. Quality Indicator For Non-Traumatic Chest Pain/Syncope: EKG Performed Review of Systems - Review Of Systems Constitutional: Reports: Malaise, Weakness Eyes: Reports: No symptoms Ears, Nose, Mouth, Throat: Reports: No symptoms Respiratory: Reports: No symptoms Cardiac: Reports: No symptoms GI: Reports: No symptoms : Reports: No symptoms Musculoskeletal: Reports: No symptoms Skin: Reports: No symptoms Neurological: Reports: No symptoms Endocrine: Reports: No symptoms Hematologic/Lymphatic: Reports: No symptoms All Other Systems: Reviewed and Negative Past Medical History - Past Medical History Endocrine: Reports: Hypothyroid, Dyslipidemia Cardiovascular: Reports: Hypertension, Other (POSTOPERATIVE HYPOTENSION AFTER BIOPSY) Respiratory: Reports: None Hematological: Reports: Anemia (B12 DEFF-OLD RECORD) Gastrointestinal: Reports: None Genitourinary: Reports: None Neuro/Psych: Reports: Anxiety Musculoskeletal: Reports: None 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, STATES SHEDULED TO FOLLOW UP WITH DR PENG), Other (CA LEFT TONSIL 2001) Last Menstrual Period: n/a - Surgical History General Surgical History: Reports: Other - Family History Family History: Reports: Unknown - Social History Smoking Status: Never smoker Hx Substance Use: No Alcohol Screening: None Physical Exam - Physical Exam Appearance: Ill-appearing Ill-appearing: Mild Pain Distress: Mild Eyes: SHANIQUE, EOMI, Conjunctiva clear ENT: Dry mucosa Respiratory: Airway patent, Breath sounds clear, Breath sounds equal, Respirations nonlabored Cardiovascular: RRR, Pulses normal, No rub, No murmur GI/: Soft, Nontender, No masses, Bowel sounds normal, No Organomegaly Musculoskeletal: Normal strength, ROM intact, No edema, No calf tenderness Skin: Warm, Dry, Normal color Neurological: Sensation intact, Motor intact, Reflexes intact, Cranial nerves intact, Alert, Oriented Psychiatric: Affect appropriate, Mood appropriate - NIH Stroke Scale 1a. Level of Consciousness: 0=Alert and keenly responsive 1b. Level of Consciousness Questions: 0=Answers correctly to two questions 1c. Level of Consciousness Commands: 0=Performs two tasks correctly 2. Best Gaze: 0=Normal 3. Visual: 0=No visual loss 4. Facial Palsy: 0=Normal 5a. Motor Left Arm: 0=No drift,arm holds 90 degrees for 10 sec., leg 30 degrees for 5 sec. 5b. Motor Right Arm: 0=No drift,arm holds 90 degrees for 10 sec., leg 30 degrees for 5 sec. 6a. Motor Left Le=No drift,arm holds 90 degrees for 10 sec., leg 30 degrees for 5 sec. 6b. Motor Right Le=No drift,arm holds 90 degrees for 10 sec., leg 30 degrees for 5 sec. 7. Limb Ataxia: 0=Absent 8. Sensory: 0=Normal 9. Best Language: 0=No aphasia 10. Dysarthria: 0=Normal 11. 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 Rate: Tachy Rhythm: Sinus - EKG Interpretation Rate: Tachy Rhythm: Sinus Ectopy: None Mcneal: NL ST Segment: Normal Re-Evaluation - Re-Evaluation Time of Re-Evaluation: 10:16 Status: Unchanged Vital Signs Stable: Yes Pain Level: 0 Appearance: NAD Lungs: Clear Skin: Warm and Dry Neuro: Alert and Oriented X3 CV: RRR Additional Comments: NEGATIVE DEFICITS Physician Notification - Case Discussed Physician Notified: PMD Time of Notification: 10:17 (PMD WOULD LIKE 2000 ML N/S BE GIVEN AT RATE LISTED IN ORDERS ) Admit/Transition Orders Entered by ED Provider: Yes (DISCUSSED WITH PMD REQUESTED PT BE ADMITTED WEAKSS , DEHYDRAION) Admit To: Inpatient Critical Care Note - Critical Care Note Total Time (mins): 0 Course - Course Hematology/Chemistry: 01/09/19 08:10 01/09/19 08:10 Orders, Labs, Meds: Lab Review 01/09/19 01/09/19 01/09/19 07:08 07:45 08:10 WBC 6.11 RBC 3.64 L Hgb 11.8 L Hct 34.4 L MCV 94.5 MCH 32.4 H MCHC 34.3 RDW Coeff of Rama 13.2 Plt Count 258 Immature Gran % (Auto) 0.3 Neut % (Auto) 74.2 Lymph % (Auto) 14.7 [place] % (Auto) 8.5 Eos % (Auto) 1.6 Baso % (Auto) 0.7 Immature Gran # (Auto) 0.0 Neut # (Auto) 4.5 Lymph # (Auto) 0.9 [place] # (Auto) 0.5 Eos # (Auto) 0.1 Baso # (Auto) 0.0 PT INR APTT Puncture Site Rb O2 Saturation 98.0 ABG pH 7.500 H ABG pCO2 28.4 L ABG pO2 92.0 ABG HCO3 22.1 ABG Total CO2 23 ABG Base Excess -1 FiO2 % 21.0 Sodium Potassium Chloride Carbon Dioxide Anion Gap BUN Creatinine Estimated GFR (MDRD) BUN/Creatinine Ratio Glucose Lactic Acid Calcium Total Bilirubin AST ALT Alkaline Phosphatase Total Creatine Kinase Troponin I Total Protein Albumin Globulin Albumin/Globulin Ratio Procalcitonin TSH Free T4 Urine Color Yellow Urine Clarity Clear Urine pH 8.0 Ur Specific Casa 1.015 Urine Protein Negative Urine Glucose (UA) Negative Urine Ketones Trace Urine Blood Negative Urine Nitrite Negative Urine Bilirubin Negative Urine Urobilinogen 0.2 Ur Leukocyte Esterase Negative 01/09/19 01/09/19 01/09/19 08:10 08:10 08:10 WBC RBC Hgb Hct MCV MCH MCHC RDW Coeff of Rama Plt Count Immature Gran % (Auto) Neut % (Auto) Lymph % (Auto) [place] % (Auto) Eos % (Auto) Baso % (Auto) Immature Gran # (Auto) Neut # (Auto) Lymph # (Auto) [place] # (Auto) Eos # (Auto) Baso # (Auto) PT INR APTT Puncture Site O2 Saturation ABG pH ABG pCO2 ABG pO2 ABG HCO3 ABG Total CO2 ABG Base Excess FiO2 % Sodium 128.6 L Potassium 4.13 Chloride 94.7 L Carbon Dioxide 27.5 Anion Gap 10.53 BUN 13.4 Creatinine 0.70 Estimated GFR (MDRD) 81.00 BUN/Creatinine Ratio 19.14 Glucose 114.2 H Lactic Acid Calcium 9.31 Total Bilirubin 0.55 AST 36.9 H ALT 22.1 Alkaline Phosphatase 199.8 H Total Creatine Kinase < 20.0 L Troponin I < 0.012 Total Protein 7.27 Albumin 4.28 Globulin 2.99 Albumin/Globulin Ratio 1.43 Procalcitonin < 0.05 TSH 4.530 Free T4 1.63 Urine Color Urine Clarity Urine pH Ur Specific Casa Urine Protein Urine Glucose (UA) Urine Ketones Urine Blood Urine Nitrite Urine Bilirubin Urine Urobilinogen Ur Leukocyte Esterase 01/09/19 01/09/19 08:10 08:10 WBC RBC Hgb Hct MCV MCH MCHC RDW Coeff of Rama Plt Count Immature Gran % (Auto) Neut % (Auto) Lymph % (Auto) [place] % (Auto) Eos % (Auto) Baso % (Auto) Immature Gran # (Auto) Neut # (Auto) Lymph # (Auto) [place] # (Auto) Eos # (Auto) Baso # (Auto) PT 10.1 INR 1.03 APTT 26.6 Puncture Site O2 Saturation ABG pH ABG pCO2 ABG pO2 ABG HCO3 ABG Total CO2 ABG Base Excess FiO2 % Sodium Potassium Chloride Carbon Dioxide Anion Gap BUN Creatinine Estimated GFR (MDRD) BUN/Creatinine Ratio Glucose Lactic Acid 0.99 Calcium Total Bilirubin AST ALT Alkaline Phosphatase Total Creatine Kinase Troponin I Total Protein Albumin Globulin Albumin/Globulin Ratio Procalcitonin TSH Free T4 Urine Color Urine Clarity Urine pH Ur Specific [place] Urine Protein Urine Glucose (UA) Urine Ketones Urine Blood Urine Nitrite Urine Bilirubin Urine Urobilinogen Ur Leukocyte Esterase Orders Category Date Time Status ABG DRAW REQUEST Stat CARDIO 01/09/19 07:46 Completed EKG-(ED ONLY) Stat CARDIO 01/09/19 07:42 Completed ED IV/MEDIPORT/POWERPORT .ONCE EMERGENCY 01/09/19 07:45 Active ABG Stat LAB 01/09/19 07:45 Completed BLOOD CULTURE (ED ONLY) Stat LAB 01/09/19 08:10 Received CBC W/ AUTO DIFF Stat LAB 01/09/19 08:10 Completed COMPREHENSIVE METABOLIC PANEL Stat LAB 01/09/19 08:10 Completed CREATINE KINASE Stat LAB 01/09/19 08:10 Completed FREE T4 (FREE THYROXINE) Stat LAB 01/09/19 08:10 Completed LACTIC ACID Stat LAB 01/09/19 08:10 Completed PARTIAL THROMBOPLASTIN TIME Stat LAB 01/09/19 08:10 Completed PROCALCITONIN Stat LAB 01/09/19 08:10 Completed PT WITH INR Stat LAB 01/09/19 08:10 Completed THYROID STIMULATING HORMONE Stat LAB 01/09/19 08:10 Completed TROPONIN I Stat LAB 01/09/19 08:10 Completed URINALYSIS C & S IF INDICATED Stat LAB 01/09/19 07:08 Completed 0.9 % Sodium Chloride [Saline Flush] MEDS 01/09/19 07:45 Active 1 syr IVF PRN PRN Sodium Chloride 0.9% [Sodium Chloride] 1,000 ml MEDS 01/09/19 07:47 Active IV 100 mls/hr CHEST, 2 VIEWS PA & LAT Stat RADS 01/09/19 07:[address] ABDOMEN/PELVIS WO CONTRAST Stat RADS 01/09/19 07:[address] CHEST W/O CONTRAST Stat RADS 01/09/19 07:[address] HEAD W/O CONTRAST Stat RADS 01/09/19 07:47 Completed Medications Generic Name Dose Route Start Last Admin Trade Name Freq PRN Reason Stop Dose Admin Sodium Chloride 1,000 mls @ 100 mls/hr 01/09/19 07:47 01/09/19 08:23 Sodium Chloride IV 01/09/19 17:46 100 mls/hr .Q10H STA Administration Sodium Chloride 1 syr 01/09/19 07:45 01/09/19 08:23 Saline Flush IVF 1 syr PRN PRN Administration To flush IV Vital Signs: Temp Pulse Resp BP Pulse Ox 01/09/19 06:44 98.5 F 105 H 16 161/88 H 99 Departure - Departure Time of Disposition: 10:17 Disposition: ADMITTED INPATIENT Discharge Problem: Hyponatremia, Weakness generalized, Dehydration Condition: Good Pt referred to PMD for follow-up: Yes IPMP verified?: No Additional Instructions: Please call your Family Physician as soon as possible to schedule a follow-up appointment. Allergies/Adverse Reactions: Allergies IV constrast Allergy (Uncoded 12/08/16 18:18) Home Medications: Ambulatory Orders Acetaminophen [Tylenol Extra Strength] 500 mg PO DAILY PRN 09/04/16 Amlodipine Besylate 5 mg PO DAILY 09/04/16 Levothyroxine Sodium 125 mcg PO DAILY 09/04/16 Losartan Potassium 50 mg PO DAILY 09/04/16 Pravastatin Sodium 40 mg PO DAILY 09/04/16 Propranolol HCl 40 mg PO BID 09/04/16 Hydroxyzine HCl 25 mg PO BID 06/24/18 Diazepam 5 mg PO QID PRN #100 12/08/18 Hydrocodone/Acetaminophen [[place] 5-325 Tablet] 1 each PO Q6-8H PRN #100 Clotrimazole [Lotrimin] 1 applic TP DIRECTED 01/09/19 Disposition Discussed With: Patient
[2019-01-09 12:20] VITALS: BMI 27.9
[2019-01-09] MEDS: SODIUM CHLORIDE 1,000 ML IV SCH (17:22)
[2019-01-09] MEDS ORDERED: INDERAL PO SCH (21:00)
[2019-01-09] MEDS ORDERED: NON-FORMULARY MEDICATION (Propranolol Hcl [Propranolol Hcl] 40 MG) PO SCH (21:00)
[2019-01-09] MEDS ORDERED: ATARAX PO SCH (21:00)
[2019-01-10] MEDS: SYNTHROID GT SCH ×2 (05:53)
[2019-01-10] MEDS: SODIUM CHLORIDE 1,000 ML IV SCH (05:53)
[2019-01-10] MEDS ORDERED: SYNTHROID PO SCH ×2 (06:30)
[2019-01-10] MEDS ORDERED: NON-FORMULARY MEDICATION (Levothyroxine Sodium [Levothyroxine Sodium] 125 MCG) PO SCH (09:00)
[2019-01-10] MEDS ORDERED: NORVASC PO SCH (09:00)
[2019-01-10] MEDS ORDERED: PRAVACHOL PO SCH (09:00)
[2019-01-10] MEDS ORDERED: NON-FORMULARY MEDICATION (Losartan Potassium [Losartan Potassium] 50 MG) PO SCH (09:00)
[2019-01-10] MEDS ORDERED: COZAAR PO SCH (09:00)
[2019-01-10] MEDS ORDERED: SODIUM CHLORIDE 3% 500 ML IV SCH (11:30)
[2019-01-10] MEDS ORDERED: NYSTOP POWDER TP ONE (13:29)
[2019-01-10] MEDS ORDERED: LOTRIMIN TP PRN (13:40)
[2019-01-10] MEDS: NYSTOP POWDER TP SCH ×2 (13:56→21:38)
[2019-01-10] MEDS ORDERED: TYLENOL NG PRN (14:29)
[2019-01-10] MEDS ORDERED: TYLENOL GT PRN (14:33)
[2019-01-10] MEDS: VALIUM GT PRN (17:54)
[2019-01-10] MEDS: ATARAX GT SCH (21:38)
[2019-01-10] MEDS: INDERAL GT SCH (21:38)
[2019-01-11] MEDS: SYNTHROID GT SCH ×2 (06:02)
[2019-01-11] MEDS ORDERED: COZAAR GT SCH (09:00)
--- NOTE | 2019-01-11 09:15 | PCM.PROG ---
Attending Provider: ATTENDING PROVIDER: Dr. KVNG EPSTEIN This patient is seen with Anum Singh, Nurse Practitioner. DATE OF SERVICE: 01/11/19 SUBJECTIVE: This 78 year old WHITE/ F was hospitalized 01/09/19. The patient is sitting up in bed resting comfortably. She has edema in arms and legs. Sodium slightly improved after IV fluids last night. REVIEW OF SYSTEMS: CONSTITUTIONAL: Weakness. No night sweats. No fatigue, malaise, lethargy. No fever or chills. HEENT: Eyes: No visual changes. No eye pain. No eye discharge. ENT: No runny nose. No epistaxis. No sinus pain. No odynophagia. No congestion. Throat positive for dysphagia. RESPIRATORY: No cough, no congestion. No hemoptysis. No shortness of breath. CARDIOVASCULAR: No angina symptoms. No CHF symptoms. No atypical chest pain for CAD. No palpitations. No orthopnea.. GASTROINTESTINAL: No abdominal pain. No nausea or vomiting. No diarrhea or constipation. No hematemesis. No hematochezia. GENITOURINARY: No urgency. No frequency. No dysuria. No hematuria. No obstructive symptoms. No discharge. No pain. No significant abnormal bleeding. MUSCULOSKELETAL: No musculoskeletal pain; no joint swelling. NEUROLOGICAL: Awake, alert, oriented to time, place and person. No headache. No neck pain. No syncope. No seizures. No dizziness. PSYCHIATRIC: Not anxious. No depression. No suicidal thoughts. No homicidal thoughts. SKIN: No rash. No lesions. No wounds. ENDOCRINE: No unexplained weight loss. No weight gain. HEMATOLOGIC/LYMPHATIC: No anemia. No purpura. No petechiae. No prolonged or excessive bleeding. No palpable lymph nodes. PHYSICAL EXAMINATION: GENERAL: The patient is awake, alert and oriented, lying/sitting in bed in no distress. VITAL SIGNS: Temperature 96.6 F, Pulse 71, Respiratory Rate 15, BP 171/82, Pulse Ox 97% HEENT: Head normocephalic, atraumatic. Eyes: Extraocular muscles are intact. Pupils are equal, round and reactive to light and accommodation. Ears: No lesions. Nose appeared normal. Throat: No exudate or erythema. NECK: Supple. No JVD, no carotid bruit. No lymphadenopathy or thyromegaly. LUNGS: Diminished breath sounds. Clear to auscultation. Percussion note normal. Chest symmetrical. HEART: S1, S2, no S3. No murmurs. No cyanosis or clubbing. No ascites. Pulses: Dorsalis pedis and posterior tibial pulses +1 to +2 both sides. ABDOMEN: Soft. Non-tender. Bowel sounds active. No CVA tenderness. No mass felt. EXTREMITIES: +1 bilateral lower extremity edema. Full range of motion of all extremities, equal. NEUROLOGIC: No focal deficit. Cranial nerves II through XII are grossly intact. No headache, no double vision or headache. SKIN: Not dry. Intact. Turgor-normal. LYMPHATIC: No palpable lymph nodes/no lymphedema. MUSCULOSKELETAL: Normal joints with no swelling. Muscle tone is normal. LAB REVIEW: 01/11/19 04:10 01/11/19 04:10 01/11/19 04:10: Sodium 129.7 L, Potassium 4.18, Chloride 99.8, Carbon Dioxide 26.4, Anion Gap 7.68, BUN 11.7, Creatinine 0.56 L, Estimated GFR (MDRD) 104.00, BUN/Creatinine Ratio 20.89, Glucose 94.7, Calcium 8.53, Total Bilirubin 0.33, AST 26.2, ALT 17.9, Alkaline Phosphatase 152.2 H, Total Protein 5.74 L, Albumin 3.13 L, Globulin 2.61, Albumin/Globulin Ratio 1.19 01/11/19 04:10: WBC 4.93, RBC 3.02 L, Hgb 9.9 L, Hct 29.2 L, MCV 96.7, MCH 32.8 H, MCHC 33.9, RDW Coeff of Rama 13.4, Plt Count 219, Immature Gran % (Auto) 0.4, Neut % (Auto) 65.5, Lymph % (Auto) 18.3, [place] % (Auto) 12.0 H, Eos % (Auto) 3.2 , Baso % (Auto) 0.6, Immature Gran # (Auto) 0.0, Neut # (Auto) 3.2, Lymph # ( Auto) 0.9, [place] # (Auto) 0.6, Eos # (Auto) 0.2, Baso # (Auto) 0.0 01/10/19 02:44: Stool Occult Blood #2 No specimen received, Stool Occult Blood # 3 No specimen received ASSESSMENT: Please see below. 1. Hyponatremia. 2. Generalized weakness. 3. Cancer of the tongue. 4. Fluid overload. 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 She has been doing 500 cc flush following tube feeding with 1/2 this amount and see if it doesn't improve. Plan and coordination of the patient's care discussed in the presence of Utilization Coordinator and nurse. CONDITION: Stable SCRIBED BY: JINNY AYALA Logistics Analyst scribed while in presence of service performed by Dr. Epstein/Anum Singh APRN on 01/11/19 ([id number])
[2019-01-11] MEDS: INDERAL GT SCH ×2 (10:37→20:58)
[2019-01-11] MEDS: VALIUM GT PRN ×2 (10:37→20:58)
[2019-01-11] MEDS: NYSTOP POWDER TP SCH ×2 (10:38→21:07)
[2019-01-11] MEDS: PRAVACHOL GT SCH (10:38)
[2019-01-11] MEDS: ATARAX GT SCH ×2 (10:38→20:58)
[2019-01-11] MEDS: NORVASC GT SCH (10:38)
--- NOTE | 2019-01-11 13:40 | PN ---
DATE OF SERVICE: 01/09/19 SUBJECTIVE: 78-year-old white female hospitalized with generalized weakness. The patient's lab tests revealed mild hyponatremia. 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 The patient was seen in the Emergency Room by the ER attending. Later on seen by me on [facility] bed 1. The patient was not in any distress, was difficult to understand this patient with speech problem, is not able to swallow. She has a feeding tube. The patient practically has no idea about her medications, her problems. She has been seen in the Emergency Room a couple of times and was sent to [facility]. She doesn't know why. POA is going to be called. PHYSICAL EXAMINATION: GENERAL: The patient seems to be oriented to place and person. VITAL SIGNS: Temperature 98.5, pulse 105, respiratory rate 16, BP 160/88, pulse ox 99%. HEENT: Head normocephalic, atraumatic. Eyes: Extraocular muscles are intact. Pupils are equal, round and reactive to light and accommodation. Ears: No lesions. Nose appeared normal. Throat: No exudate or erythema. NECK: Supple. No JVD, no carotid bruit. No lymphadenopathy or thyromegaly. LUNGS: Clear to auscultation. Percussion note normal. Chest symmetrical. HEART: S1, S2, no S3. No murmurs. No cyanosis or clubbing. No ascites. Pulses: Dorsalis pedis and posterior tibial pulses +1 to +2 bilaterally. ABDOMEN: The patient's gastrostomy tube is noted in the periumbilical area. Soft. Nontender. Bowel sounds active. No CVA tenderness. No mass felt. EXTREMITIES: No edema. Full range of motion of all extremities, equal. NEUROLOGIC: No focal deficit. Cranial nerves II through XII are grossly intact. No headache, no double vision or headache. SKIN: Not dry. Intact. Turgor - normal. LYMPHATIC: No palpable lymph nodes/no lymphedema. MUSCULOSKELETAL: Normal joints with no swelling. Muscle tone is normal. LABS: Hemoglobin 11.8, hematocrit 34, WBC 6,100, normal differential. Creatinine 0.7, BUN 13, potassium 4.1. T4, TSH normal. ASSESSMENT: 1. Generalized weakness. 2. Electrolyte imbalance. PLAN: 1. Admit the patient and replenish with NS. 2. Will also try to get the patient's history and problem list while the patient was transferred a few days ago a couple of times to [facility] and was discharged. Will try to get the records. TIME SPENT: More than 30 minutes. Plan and coordination of the patient's care discussed in the presence of nurse. LUKE
--- NOTE | 2019-01-11 14:07 | PN ---
DATE OF SERVICE: 01/10/19 SUBJECTIVE: 78-year-old white female hospitalized with generalized weakness, hyponatremia. Hyponatremia has worsened on NS infusion 75 cc/hour. The patient's sodium from 128 has gone down to 125. Will change it to 3% NS to run at 24 hours. The patient is advised to restrict the fluid. The patient has Gastrostomy feeding. 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 She is being followed by Dr. Buckner on chemotherapy. 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 PHYSICAL EXAMINATION: GENERAL: The patient is resting at the present time. VITAL SIGNS: Temperature 98, pulse 110, respiratory rate 20, BP 168/92, pulse ox 96% on room air. She looks somewhat pale. HEENT: Head normocephalic, atraumatic. Eyes: Extraocular muscles are intact. Pupils are equal, round and reactive to light and accommodation. Ears: No lesions. Nose appeared normal. Throat: No exudate or erythema. NECK: Supple. No JVD, no carotid bruit. No lymphadenopathy or thyromegaly. LUNGS: Decreased breath sounds but clear to auscultation. Percussion note normal. Chest symmetrical. HEART: S1, S2, no S3. No murmurs. No cyanosis or clubbing. No ascites. Pulses: Dorsalis pedis and posterior tibial pulses +1 to +2 bilaterally. ABDOMEN: Soft. Nontender. Bowel sounds active. No CVA tenderness. No mass felt. EXTREMITIES: No edema. Full range of motion of all extremities, equal. NEUROLOGIC: No focal deficit. Cranial nerves II through XII are grossly intact. No headache, no double vision or headache. SKIN: Not dry. Intact. Turgor - normal. LYMPHATIC: No palpable lymph nodes/no lymphedema. MUSCULOSKELETAL: Normal joints with no swelling. Muscle tone is normal. LABS: Hemoglobin 10.4, hematocrit 30, WBC 8,000, normal differential, creatinine 0.5, BUN 13, potassium 3.9. ASSESSMENT: 1. Hyponatremia/electrolyte imbalance. 2. CA of the tongue with local invasion to the jaw area being treated and followed by Dr. Buckner. PLAN: 1. The patient's medications like Losartan, Propanolol and Amlodipine needs to be restarted. 2. Continue Hydrocodone as before along with Levothyroxine. CONDITION: Stable. Prognosis: Guarded. TIME SPENT: More than 30 minutes. Plan and coordination of the patient's care discussed in the presence of nurse. LUKE
--- NOTE | 2019-01-11 15:07 | RS.PTINEVL ---
Subjective - Patient information Date of Evaluation: 01/11/19 Date of Arrival on Unit: 01/09/19 Admitted From:: Home Diagnosis: hyponatremia, dehydration Usual Living Arrangement: Alone Home Environment: House Medical History: Hypertension, Cancer (throat, tongue, tonsil) Medical History Comments:: anxiety, dehydration, GERD, anxiety LATEX ALLERGY?: No Surgical History Comments:: PEG tube, part of tongue removed Medications: see chart Subjective Information/ Patient Comments:: pt states she is worried about what she is going to do, regarding DC plans. pt is concerned she can't take care of herself at home. States she is worried that she will lose her apt is she goes to custodial. Reassured patient that staff will assist her with dc planning. - Level of function Abilities prior to this admission: pt lived alone, however had very difficult time with ADL's, feeding. pt has a worker from [employer] 4x a week. Current Level of Function: Partially Dependent Current Equipment Used at Home: rolling walker Interventions - Objective Patient Orientation: Person, Place Current Interventions: IV's, Telemetry, Feeding tube Observation: very difficult to understand pt speech due to partial tongue removal. Range of Motion - ROM Right Upper Extremity AROM: WFL's Left Upper Extremity AROM: WFL's Right Lower Extremity AROM: WFL's Left Lower Extremity AROM: WFL's Muscle Strength - Muscle Strength Right Upper Extremity Strength: Mild Weakness (shld flex 3+/5, elbow flex/ext 4- /5,) Left Upper Extremity Strength: Mild Weakness (shld flex 3+/5, elbow flex/ext 4-/ 5,) Right Lower Extremity Strength: Mild Weakness (hip flex 4-/5, knee flex/ext 4/5 , ankle DF/PF 4/5) Left Lower Extremity Strength: Mild Weakness (hip flex 4-/5, knee flex/ext 4/5, ankle DF/PF 4/5) Sensation - Sensation Right Upper Extremity Sensation: Intact/Normal Left Upper Extremity Sensation: Intact/Normal Right Lower Extremity Sensation: Intact/Normal Left Lower Extremity Sensation: Intact/Normal Palpation Palpation Findings: None/Normal Balance - Sitting Balance and Reactions Static Sitting Balance: Fair Dynamic Sitting Balance: Fair - Standing Balance and Reactions Static Standing Balance: Poor Dynamic Standing Balance: Poor Standing Equilibrium Reactions: Delayed Left, Delayed Right Standing Protective Reactions: Delayed Left, Delayed Right Functional Mobility - Bed Mobility Rolling R/L: CGA (with bedrails) Scooting: CGA (using bedrails ) Supine to Sit: CGA, Min Assist Sit to Supine: CGA, Min Assist - Transfers Sit to Stand: CGA Stand to Sit: CGA - Safety Awareness Safety Awareness: Fair ANUJ INDEX SCORE: n/a Ambulation - Ambulation Assistive Device Used: Rolling Walker Orthotic/Prosthetic Device: No Distance: 5ft Assistance needed with Ambulation: CGA, Min Assist, 1 person assist Gait Deviations: Shuffling gait, Ataxic gait, Forward posture Ambulation Comments: pt amb with decreased step length, flexed posture, as well as deviates from path with rwx. Factors Affecting Ambulation: Decreased Balance, Weakness, Decreased Safety, Limited Endurance Treatment time - Time with patient Length of Evaluation: 23 Total treatment time: 25 Patient Education - Education Patient Education: Activity Modification, Education of Plan of Care Teaching Recipient: Patient Teaching Methods: Discussion Comments: discussion with patient regarding POC Assessment - Assessment Problem List:: Decreased level of function, Requires training/education, Decreased safety/Risk of falls, Weakness, Pain limits previous level of function Rehab Potential: Fair Further Therapy Indicated?: Yes Candidate for Swing Bed for Therapy Services?: Feel pt may not be a candidate for swing bed due to feel pt will require increased rehab time. Evaluation Complexity: HISTORY: Medium, EXAM OF BODY SYSTEMS: Medium, CLINICAL PRESENTATION: Medium, CLINICAL DECISION MAKING: Medium Short Term Goals GOAL #1: pt demonstrate rolling and scooting in bed independently with bedrails Goal to be met by: 01/13/19 GOAL #2: Transfer sup to/from sit CG to SBA Goal to be met by: 01/13/19 GOAL #3: Sit to/from stand SBA Goal to be met by: 01/13/19 GOAL #4: pt amb 75ft with rwx with improved posture, and step length with CGA Goal to be met by: 01/13/19 GOAL #5: Improve dyn stand balance fair Goal to be met by: 01/13/19 Long-Term Goals GOAL #1: Transfers sup to/from sit SBA, sit to/from stand SBA Goal to be met by: 01/15/19 GOAL #2: pt amb 120ft with rwx CGA with no LOB Goal to be met by: 01/15/19 GOAL #3: Improve dyn stand balance fair+ Goal to be met by: 01/15/19 Plan Plan of Care: Therapeutic EX, Therapeutic Activity Other:: gait training Frequency of Treatment: 1-2 X day, as tolerated Duration of Treatment: 5 days Treatment Diagnosis (ICD 10 Codes): R 26.2 difficulty walking. R 26.81 balance impaired. Z91.81 risk for falls Has the Physician been added for Co-signature?: Yes
[2019-01-11] MEDS: NORCO 5-325 GT PRN (20:58)
[2019-01-12] MEDS: SYNTHROID GT SCH ×2 (06:09)
[2019-01-12] MEDS: INDERAL GT SCH ×2 (09:20→21:59)
[2019-01-12] MEDS: NORVASC GT SCH (09:20)
[2019-01-12] MEDS: ATARAX GT SCH ×2 (09:20→22:00)
[2019-01-12] MEDS: COZAAR GT SCH ×2 (09:20→22:00)
[2019-01-12] MEDS: PRAVACHOL GT SCH (09:21)
--- NOTE | 2019-01-12 09:28 | PCM.PROG ---
Attending Provider: ATTENDING PROVIDER: Dr. KVNG EPSTEIN This patient is seen with Anum Singh, Nurse Practitioner. DATE OF SERVICE: 01/12/19 SUBJECTIVE: This 78 year old WHITE/ F was hospitalized 01/09/19. The patient is resting comfortably. She is still sleepy this morning. Sodium seems slightly improved after reducing flush on tube feeding. The patient has a bed at [facility] when ready for discharge. REVIEW OF SYSTEMS: CONSTITUTIONAL: Weakness. No night sweats. No fatigue, malaise, lethargy. No fever or chills. HEENT: Positive for dysphagia. Eyes: No visual changes. No eye pain. No eye discharge. ENT: No runny nose. No epistaxis. No sinus pain. No odynophagia. No congestion. RESPIRATORY: No cough, no congestion. No hemoptysis. No shortness of breath. CARDIOVASCULAR: No angina symptoms. No CHF symptoms. No atypical chest pain for CAD. No palpitations. No orthopnea.. GASTROINTESTINAL: No abdominal pain. No nausea or vomiting. No diarrhea or constipation. No hematemesis. No hematochezia. GENITOURINARY: No urgency. No frequency. No dysuria. No hematuria. No obstructive symptoms. No discharge. No pain. No significant abnormal bleeding. MUSCULOSKELETAL: No musculoskeletal pain; no joint swelling. NEUROLOGICAL: Awake, alert, oriented to time, place and person. No headache. No neck pain. No syncope. No seizures. No dizziness. PSYCHIATRIC: Not anxious. No depression. No suicidal thoughts. No homicidal thoughts. SKIN: No rash. No lesions. No wounds. ENDOCRINE: No unexplained weight loss. No weight gain. HEMATOLOGIC/LYMPHATIC: No anemia. No purpura. No petechiae. No prolonged or excessive bleeding. No palpable lymph nodes. PHYSICAL EXAMINATION: GENERAL: The patient is awake, alert and oriented, lying/sitting in bed in no distress. VITAL SIGNS: Temperature 97.5 F, Pulse 77, Respiratory Rate 20, BP 154/88, Pulse Ox 99% HEENT: Head normocephalic, atraumatic. Eyes: Extraocular muscles are intact. Pupils are equal, round and reactive to light and accommodation. Ears: No lesions. Nose appeared normal. Throat: No exudate or erythema. NECK: Supple. No JVD, no carotid bruit. No lymphadenopathy or thyromegaly. LUNGS: Diminished breath sounds. Clear to auscultation. Percussion note normal. Chest symmetrical. HEART: S1, S2, no S3. No murmurs. No cyanosis or clubbing. No ascites. Pulses: Dorsalis pedis and posterior tibial pulses +1 to +2 both sides. ABDOMEN: Soft. Non-tender. Bowel sounds active. No CVA tenderness. No mass felt. EXTREMITIES: Trace bilateral leg edema. Full range of motion of all extremities , equal. NEUROLOGIC: No focal deficit. Cranial nerves II through XII are grossly intact. No headache, no double vision or headache. SKIN: Not dry. Intact. Turgor-normal. LYMPHATIC: No palpable lymph nodes/no lymphedema. MUSCULOSKELETAL: Normal joints with no swelling. Muscle tone is normal. LAB REVIEW: 01/12/19 05:42 01/12/19 05:42 01/12/19 05:42: Sodium 128.9 L, Potassium 3.77, Chloride 96.8 L, Carbon Dioxide 28.4, Anion Gap 7.47, BUN 11.1, Creatinine 0.60, Estimated GFR (MDRD) 96.00, BUN /Creatinine Ratio 18.50, Glucose 92.4, Calcium 8.91, Total Bilirubin 0.34, AST 30.9, ALT 20.6, Alkaline Phosphatase 163.1 H, Total Protein 6.47, Albumin 3.62, Globulin 2.85, Albumin/Globulin Ratio 1.27 01/12/19 05:42: WBC 5.77, RBC 3.38 L, Hgb 11.1 L, Hct 32.5 L, MCV 96.2, MCH 32.8 H, MCHC 34.2, RDW Coeff of Rama 13.3, Plt Count 243, Immature Gran % (Auto) 0.3, Neut % (Auto) 65.7, Lymph % (Auto) 17.7, [place] % (Auto) 11.1 H, Eos % (Auto ) 4.5, Baso % (Auto) 0.7, Immature Gran # (Auto) 0.0, Neut # (Auto) 3.8, Lymph # (Auto) 1.0, [place] # (Auto) 0.6, Eos # (Auto) 0.3, Baso # (Auto) 0.0 ASSESSMENT: Please see below. 1. Hyponatremia. 2. Generalized weakness. 3. Hypertension. 4. Cancer of the tongue. 5. Fluid overload. seems to be improving PLAN: 1. Cozaar 50 b.i.d. 2. Continue to monitor tube feeding. Plan and coordination of the patient's care discussed in the presence of Sand Digger and nurse. CONDITION: Stable SCRIBED BY: JINNY AYALA Casting Assistant scribed while in presence of service performed by Dr. Epstein/Anum Singh APRN on 01/12/19 ([id number])
[2019-01-12] MEDS: NYSTOP POWDER TP SCH ×2 (09:43→22:00)
--- NOTE | 2019-01-12 10:03 | HP ---
DATE OF SERVICE: 01/09/19 HISTORY OF PRESENT ILLNESS: 78-year-old white female who presents to the emergency room complaining of weakness, light-headed and dizzy. 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 She sees Dr. Buckner along with Dr. Portilol. 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 Reid REVIEW OF SYSTEMS: CONSTITUTIONAL: Positive for weakness and fatigue. No night sweats. No malaise , lethargy. No fever or chills. HEENT: Eyes: No visual changes. No eye pain. No eye discharge. ENT: No runny nose. No epistaxis. No sinus pain. No sore throat. No odynophagia. No ear pain. No congestion. RESPIRATORY: No cough, no congestion. No hemoptysis. No shortness of breath. CARDIOVASCULAR: No angina symptoms. No CHF symptoms. No atypical chest pain for CAD. No palpitations. No PND. No orthopnea. GASTROINTESTINAL: No abdominal pain. No nausea or vomiting. No diarrhea or constipation. No hematemesis. No hematochezia. GENITOURINARY: No urgency. No frequency. No dysuria. No hematuria. No obstructive symptoms. No discharge. No pain. No significant abnormal bleeding. MUSCULOSKELETAL: No musculoskeletal pain. No joint swelling. No arthritis. NEUROLOGICAL: Positive for dizziness. No headache. No neck pain. No syncope. No seizures. PSYCHIATRIC: Not anxious. No depression. No suicidal thoughts. No homicidal thoughts. SKIN: No rash. No lesions. No wounds. ENDOCRINE: No unexplained weight loss. No weight gain. HEMATOLOGIC/LYMPHATIC: No anemia. No purpura. No petechiae. No prolonged or excessive bleeding. No palpable lymph nodes. PERSONAL/FAMILY/SOCIAL HISTORY: She is a nonsmoker. She is . No alcohol or illicit drug use. She currently lives at home by herself. MEDICATIONS: Propranolol 40 mg p.o. b.i.d. Pravastatin 40 mg p.o. daily Acetaminophen 500 mg p.o. p.r.n. Losartan 50 mg p.o. daily Levothyroxine 125 mcg p.o. daily Amlodipine 5 mg p.o. daily Hydroxyzine 25 mg p.o. b.i.d. Hydrocodone/Acetaminophen one each p.o. q.6-8hr p.r.n. Diazepam 5 mg p.o. q.i.d. p.r.n. Clotrimazole one application TP as directed ALLERGIES: IV CONTRAST PHYSICAL EXAMINATION: VITAL SIGNS: Temperature 98.5, heart rate 105, respirations 16, blood pressure 161/88, pulse ox 99%. Color is pale. HEENT: Head normocephalic, atraumatic. Eyes: Extraocular muscles are intact. Pupils are equal, round and reactive to light and accommodation. Ears: No lesions. Nose appeared normal. Throat: No exudate or erythema. NECK: Supple. No JVD, no carotid bruit. No lymphadenopathy or thyromegaly. LUNGS: Diminished breath sounds bilaterally. Clear to auscultation. Percussion note normal. Chest symmetrical. HEART: S1, S2, no S3. No murmurs. No cyanosis or clubbing. No ascites. Pulses: Dorsalis pedis and posterior tibial pulses +1 to +2 bilaterally. ABDOMEN: Soft. Nontender. Bowel sounds active. No CVA tenderness. No mass felt. EXTREMITIES: +1 pitting edema bilateral lower extremities. Generalized edema in upper extremities. Full range of motion of all extremities, equal. NEUROLOGIC: No focal deficit. Cranial nerves II through XII are grossly intact. No headache, no double vision or headache. SKIN: Dry. Intact. Turgor - normal. Dry mucous membranes. LYMPHATIC: No palpable lymph nodes/no lymphedema. MUSCULOSKELETAL: Normal joints with no swelling. Muscle tone is normal. ABGs on room air pH 7.5, pc02 28, p02 92, base excess -1, bicarb 22, TC02 23, 02 sat 98, sodium 128, BUN 13, creatinine 0.7, AST 36, ALT 22, total protein 7.27. Alkaline phosphatase 199, free T4 1.63, lactic acid 0.99. White count 6.1 , hemoglobin 11.8, hematocrit 34.4, platelets 258. Urine shows trace ketones, is otherwise negative. Chest x-ray shows no acute cardiopulmonary process. CT of the head is normal. CT of the abdomen and pelvis shows no bowel obstruction or acute inflammatory change. ASSESSMENT: 1. HYPONATREMIA 2. GENERALIZED WEAKNESS 3. DEHYDRATION 4. HYPERTENSION PLAN: 1. We will admit to [facility]. 2. Routine telemetry orders. 3. CBC, CMP daily. 4. She is to continue with her tube feedings. 5. She has severe dysphagia secondary to the carcinoma of the tongue, is unable to take anything by mouth. 6. NS Iv at 75 cc's/hr. 7. Continue home medications. 8. Elevate legs. TIME SPENT: More than 70 minutes. MTDD
[2019-01-13] MEDS: SYNTHROID GT SCH ×2 (05:42→05:43)
[2019-01-13] MEDS: PRAVACHOL GT SCH (10:09)
[2019-01-13] MEDS: INDERAL GT SCH ×2 (10:09→21:03)
[2019-01-13] MEDS: COZAAR GT SCH ×2 (10:10→21:03)
[2019-01-13] MEDS: ATARAX GT SCH ×2 (10:10→21:03)
[2019-01-13] MEDS: NORVASC GT SCH (10:10)
[2019-01-13] MEDS: NORCO 5-325 GT PRN (11:27)
[2019-01-13] MEDS: NYSTOP POWDER TP SCH ×2 (11:27→21:03)
[2019-01-13] MEDS: VALIUM GT PRN ×2 (11:28→21:03)
--- NOTE | 2019-01-13 12:39 | PN ---
DATE OF SERVICE: 01/11/19 SUBJECTIVE: The patient was seen and examined with Nurse Practitioner. The patient's condition is stable. She wants to go to the residential. The patient was given a lot of fluid flushing more than 2,000cc which needs to be decreased. Could be the reason the reason why the patient had hyponatremia. Cardiovascular and neurological status is normal. TIME SPENT: More than 30 minutes. Plan and coordination of the patient's care discussed in the presence of nurse. LUKE
--- NOTE | 2019-01-13 13:29 | PN ---
DATE OF SERVICE: 01/12/19 SUBJECTIVE: The patient was seen and examined with Nurse Practitioner. The patient's condition is stable. Cardiovascular status is stable. Her sodium is coming up and doing much better. Skin turgor is better. The patient is also waiting for senior care placement. TIME SPENT: More than 30 minutes. Plan and coordination of the patient's care discussed in the presence of nurse. LUKE
[2019-01-14] MEDS: SYNTHROID GT SCH ×2 (06:08)
--- NOTE | 2019-01-14 08:13 | PCM.PROG ---
Attending Provider: ATTENDING PROVIDER: Dr. KVNG EPSTEIN This patient is seen with Anum Singh, Nurse Practitioner. DATE OF SERVICE: 01/14/19 SUBJECTIVE: This 78 year old WHITE/ F was hospitalized 01/09/19. The patient is resting comfortably. CMP is still pending this morning. Blood pressure has been more controlled. REVIEW OF SYSTEMS: CONSTITUTIONAL: No night sweats. No fatigue, malaise, lethargy. No fever or chills. Weakness. HEENT: Eyes: No visual changes. No eye pain. No eye discharge. ENT: No runny nose. No epistaxis. No sinus pain. No odynophagia. No congestion. RESPIRATORY: No cough, no congestion. No hemoptysis. No shortness of breath. CARDIOVASCULAR: No angina symptoms. No CHF symptoms. No atypical chest pain for CAD. No palpitations. No orthopnea.. GASTROINTESTINAL: No abdominal pain. No nausea or vomiting. No diarrhea or constipation. No hematemesis. No hematochezia. No Dysphagia GENITOURINARY: No urgency. No frequency. No dysuria. No hematuria. No obstructive symptoms. No discharge. No pain. No significant abnormal bleeding. MUSCULOSKELETAL: No musculoskeletal pain; no joint swelling. NEUROLOGICAL: Awake, alert, oriented to time, place and person. No headache. No neck pain. No syncope. No seizures. No dizziness. PSYCHIATRIC: Not anxious. No depression. No suicidal thoughts. No homicidal thoughts. SKIN: No rash. No lesions. No wounds. ENDOCRINE: No unexplained weight loss. No weight gain. HEMATOLOGIC/LYMPHATIC: No anemia. No purpura. No petechiae. No prolonged or excessive bleeding. No palpable lymph nodes. PHYSICAL EXAMINATION: GENERAL: The patient is awake, alert and oriented, lying in bed in no distress. VITAL SIGNS: Temperature 97.3 F, Pulse 70, Respiratory Rate 16, BP 148/82, Pulse Ox 98% HEENT: Head normocephalic, atraumatic. Eyes: Extraocular muscles are intact. Pupils are equal, round and reactive to light and accommodation. Ears: No lesions. Nose appeared normal. Throat: No exudate or erythema. NECK: Supple. No JVD, no carotid bruit. No lymphadenopathy or thyromegaly. LUNGS: Diminished breath sounds. Clear to auscultation. Percussion note normal. Chest symmetrical. HEART: S1, S2, no S3. No murmurs. No cyanosis or clubbing. No ascites. Pulses: Dorsalis pedis and posterior tibial pulses +1 to +2 both sides. ABDOMEN: Soft. Non-tender. Bowel sounds active. No CVA tenderness. No mass felt. EXTREMITIES: No edema. Full range of motion of all extremities, equal. NEUROLOGIC: No focal deficit. Cranial nerves II through XII are grossly intact. No headache, no double vision or headache. SKIN: Not dry. Intact. Turgor-normal. LYMPHATIC: No palpable lymph nodes/no lymphedema. MUSCULOSKELETAL: Normal joints with no swelling. Muscle tone is normal. LAB REVIEW: 01/13/19 04:10 01/13/19 04:10 ASSESSMENT: Please see below. 1. Hyponatremia. 2. Generalized weakness. 3. Hypertension. 4. Cancer of the tongue. 5. Fluid overload. seems to be improving PLAN: 1. Wait for CBC and CMP 2. Room waiting at [facility] 3. Hyponatremia likely due to fluid overload Plan and coordination of the patient's care discussed in the presence of Adon and nurse. SCRIBED BY: Tiffanie BISWAS scribed while in presence of service performed by Dr. Epstein/Anum Singh APRN on 01/14/19 ([id number])
[2019-01-14] MEDS: COZAAR GT SCH ×2 (09:40→21:51)
[2019-01-14] MEDS: PRAVACHOL GT SCH (09:40)
[2019-01-14] MEDS: NYSTOP POWDER TP SCH ×2 (09:40→21:55)
[2019-01-14] MEDS: NORVASC GT SCH (09:40)
[2019-01-14] MEDS: INDERAL GT SCH ×2 (09:40→21:51)
[2019-01-14] MEDS: ATARAX GT SCH ×2 (09:40→21:51)
[2019-01-14] MEDS: NORCO 5-325 GT PRN (21:51)
[2019-01-15] MEDS: VALIUM GT PRN ×2 (02:32→13:53)
[2019-01-15 05:33] VITALS: BP 150/78; TEMP 97.5
[2019-01-15] MEDS: SYNTHROID GT SCH ×2 (06:11)
--- NOTE | 2019-01-15 09:16 | PCM.PROG ---
Attending Provider: ATTENDING PROVIDER: Dr. KVNG EPSTEIN This patient is seen with Anum Singh, Nurse Practitioner. DATE OF SERVICE: 01/15/19 SUBJECTIVE: This 78 year old WHITE/ F was hospitalized 01/09/19. The patient is resting comfortably. Sodium has slightly improved. The patient is ready to go to [facility] [place]. REVIEW OF SYSTEMS: CONSTITUTIONAL: No night sweats. No fatigue, malaise, lethargy. No fever or chills. Weakness. HEENT: Eyes: No visual changes. No eye pain. No eye discharge. ENT: No runny nose. No epistaxis. No sinus pain. No odynophagia. No congestion. RESPIRATORY: No cough, no congestion. No hemoptysis. No shortness of breath. CARDIOVASCULAR: No angina symptoms. No CHF symptoms. No atypical chest pain for CAD. No palpitations. No orthopnea.. GASTROINTESTINAL: No abdominal pain. No nausea or vomiting. No diarrhea or constipation. No hematemesis. No hematochezia. Dysphagia. GENITOURINARY: No urgency. No frequency. No dysuria. No hematuria. No obstructive symptoms. No discharge. No pain. No significant abnormal bleeding. MUSCULOSKELETAL: No musculoskeletal pain; no joint swelling. NEUROLOGICAL: Awake, alert, oriented to time, place and person. No headache. No neck pain. No syncope. No seizures. No dizziness. PSYCHIATRIC: Not anxious. No depression. No suicidal thoughts. No homicidal thoughts. SKIN: No rash. No lesions. No wounds. ENDOCRINE: No unexplained weight loss. No weight gain. HEMATOLOGIC/LYMPHATIC: No anemia. No purpura. No petechiae. No prolonged or excessive bleeding. No palpable lymph nodes. PHYSICAL EXAMINATION: GENERAL: The patient is awake, alert and oriented, lying in bed in no distress. VITAL SIGNS: Temperature 97.5 F, Pulse 78, Respiratory Rate 16, BP 150/78, Pulse Ox 99% HEENT: Head normocephalic, atraumatic. Eyes: Extraocular muscles are intact. Pupils are equal, round and reactive to light and accommodation. Ears: No lesions. Nose appeared normal. Throat: No exudate or erythema. NECK: Supple. No JVD, no carotid bruit. No lymphadenopathy or thyromegaly. LUNGS: Decreased breath sounds. Clear to auscultation. Percussion note normal. Chest symmetrical. HEART: S1, S2, no S3. No murmurs. No cyanosis or clubbing. No ascites. Pulses: Dorsalis pedis and posterior tibial pulses +1 to +2 both sides. ABDOMEN: Soft. Non-tender. Bowel sounds active. No CVA tenderness. No mass felt. EXTREMITIES: No edema. Full range of motion of all extremities, equal. NEUROLOGIC: No focal deficit. Cranial nerves II through XII are grossly intact. No headache, no double vision or headache. SKIN: Not dry. Intact. Turgor-normal. LYMPHATIC: No palpable lymph nodes/no lymphedema. MUSCULOSKELETAL: Normal joints with no swelling. Muscle tone is normal. LAB REVIEW: 01/15/19 05:08 01/15/19 05:08 01/15/19 05:08: Sodium 127.8 L, Potassium 4.33, Chloride 95.5 L, Carbon Dioxide 28.7, Anion Gap 7.93, BUN 18.8 H, Creatinine 0.66, Estimated GFR (MDRD) 86.00, BUN/Creatinine Ratio 28.48, Glucose 87.3, Calcium 8.74, Total Bilirubin 0.28, AST 23.7, ALT 19.2, Alkaline Phosphatase 168.4 H, Total Protein 6.08 L, Albumin 3.40 L, Globulin 2.68, Albumin/Globulin Ratio 1.26 01/15/19 05:08: WBC 6.09, RBC 3.24 L, Hgb 10.6 L, Hct 31.7 L, MCV 97.8, MCH 32.7 H, MCHC 33.4, RDW Coeff of Rama 13.6, Plt Count 255, Immature Gran % (Auto) 0.3, Neut % (Auto) 65.5, Lymph % (Auto) 19.9, [place] % (Auto) 9.9, Eos % (Auto) 3.6, Baso % (Auto) 0.8, Immature Gran # (Auto) 0.0, Neut # (Auto) 4.0, Lymph # ( Auto) 1.2, [place] # (Auto) 0.6, Eos # (Auto) 0.2, Baso # (Auto) 0.1 01/14/19 08:16: Sodium 127.8 L, Potassium 4.25, Chloride 96.4 L, Carbon Dioxide 27.7, Anion Gap 7.95, BUN 16.4, Creatinine 0.60, Estimated GFR (MDRD) 96.00, BUN /Creatinine Ratio 27.33, Glucose 101.3, Calcium 8.59, Total Bilirubin 0.29, AST 27.3, ALT 20.2, Alkaline Phosphatase 153.1 H, Total Protein 6.23 L, Albumin 3.45 L, Globulin 2.78, Albumin/Globulin Ratio 1.24 01/14/19 08:12: WBC 6.13, RBC 3.27 L, Hgb 10.7 L, Hct 31.7 L, MCV 96.9, MCH 32.7 H, MCHC 33.8, RDW Coeff of Rama 13.5, Plt Count 233, Immature Gran % (Auto) 0.2, Neut % (Auto) 72.0, Lymph % (Auto) 13.7, [place] % (Auto) 9.8, Eos % (Auto) 3.8, Baso % (Auto) 0.5, Immature Gran # (Auto) 0.0, Neut # (Auto) 4.4, Lymph # ( Auto) 0.8, [place] # (Auto) 0.6, Eos # (Auto) 0.2, Baso # (Auto) 0.0 ASSESSMENT: Please see below. 1. Hyponatremia. 2. Generalized weakness. 3. Hypertension. 4. Cancer of the tongue. 5. Fluid overload. seems to be improving PLAN: 1. Discharge to [facility]. 2. 237ml tube feeding Q 4 hours Plan and coordination of the patient's care discussed in the presence of Dividing Machine Operator Helper and nurse. SCRIBED BY: Tiffanie BISWAS scribed while in presence of service performed by Dr. Epstein/Anum Singh APRN on 01/15/19 ([id number])
[2019-01-15] MEDS: ATARAX GT SCH (09:54)
[2019-01-15] MEDS: INDERAL GT SCH (09:54)
[2019-01-15] MEDS: COZAAR GT SCH (09:54)
[2019-01-15] MEDS: NORVASC GT SCH (09:54)
[2019-01-15] MEDS: NYSTOP POWDER TP SCH (09:55)
[2019-01-15] MEDS: PRAVACHOL GT SCH (09:55)
--- NOTE | 2019-01-15 11:25 | CM.DICTOOL ---
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 FLUID OVERLOAD, RESOLVING THROAT CA DYSPHASIA HTN GERD PEG TUBE- LUQ OA PROLAPSED BLADDER HYPOTHYROIDISM ANXIETY PARTIAL REMOVAL OF TONGUE LAST VITALS Temp Pulse Resp BP Pulse Ox 97.5 F L 78 16 148/82 H 99 01/15/19 05:16 01/15/19 05:16 01/14/19 05:16 01/15/19 05:16 01/15/19 05:16 TAKE THESE MEDICATIONS AT HOME Acetaminophen (Tylenol) 500 mg GT DAILY PRN PRN Reason: Fever >101 Hydrocodone Bitart/Acetaminophen ([place] 5-325) 1 tab GT Q6-8H PRN PRN Reason: Analgesia Last Admin: 01/14/19 21:50 Dose: 1 tab Amlodipine Besylate (Norvasc) 5 mg GT DAILY [facility] Last Admin: 01/15/19 09:40 Dose: 5 mg Clotrimazole (Lotrimin) 1 applic TP BID PRN PRN Reason: SKIN INTEGRITY Diazepam (Valium) 5 mg GT QID PRN PRN Reason: Anxiety Last Admin: 01/15/19 02:32 Dose: 5 mg Hydroxyzine HCl (Atarax) 25 mg GT BID [facility] Last Admin: 01/15/19 09:40 Dose: 25 mg Levothyroxine Sodium (Synthroid) 125 mcg GT QDAC [facility] Last Admin: 01/15/19 06:11 Dose: 125 mcg Losartan Potassium (Cozaar) 50 mg GT BID [facility] Last Admin: 01/15/19 09:40 Dose: 50 mg Nystatin (Nystop Cream) 1 applic TP BID KARTHIKEYAN apply to area around G tube insertion site Last Admin: n/a Pravastatin Sodium (Pravachol) 40 mg GT DAILY [facility] Last Admin: 01/15/19 09:40 Dose: 40 mg Propranolol HCl (Inderal) 40 mg GT BID [facility] Last Admin: 01/15/19 09:40 Dose: 40 mg ALLERGIES IV constrast Allergy (Uncoded 12/08/16 18:18) DISCONTINUED MEDICATIONS NONE NEW PRESCRIPTIONS: NYSTATIN CREAM - WASH AREA G TUBE WITH SOAP AND WATER. PAT DRY. APPLY THIN LAYER OF CREAM TWICE A DAY TO THE EXCORIATED SKIN AROUND G TUBE INSERTION SITE. SMOKING: NON SMOKER DISEASE SPECIFIC EDUCATION: HYPONATREMIA WEAKNESS HTN PT/OT/ST LAB REVIEW: 01/14/19 08:12 01/14/19 08:16 01/14/19 08:16: Sodium 127.8 L, Potassium 4.25, Chloride 96.4 L, Carbon Dioxide 27.7, Anion Gap 7.95, BUN 16.4, Creatinine 0.60, Estimated GFR (MDRD) 96.00, BUN /Creatinine Ratio 27.33, Glucose 101.3, Calcium 8.59, Total Bilirubin 0.29, AST 27.3, ALT 20.2, Alkaline Phosphatase 153.1 H, Total Protein 6.23 L, Albumin 3.45 L, Globulin 2.78, Albumin/Globulin Ratio 1.24 01/14/19 08:12: WBC 6.13, RBC 3.27 L, Hgb 10.7 L, Hct 31.7 L, MCV 96.9, MCH 32.7 H, MCHC 33.8, RDW Coeff of Rama 13.5, Plt Count 233, Immature Gran % (Auto) 0.2, Neut % (Auto) 72.0, Lymph % (Auto) 13.7, [place] % (Auto) 9.8, Eos % (Auto) 3.8, Baso % (Auto) 0.5, Immature Gran # (Auto) 0.0, Neut # (Auto) 4.4, Lymph # ( Auto) 0.8, [place] # (Auto) 0.6, Eos # (Auto) 0.2, Baso # (Auto) 0.0 PLAN: DISCHARGE TO [facility] DIET: NPO JEVITY 1.2 237 ML BOLUS FEEDINGS EVERY FOUR HOURS FLUSH WITH 150 ML WATER BOLUS EVERY FOUR HOURS ACTIVITY: MAY PARTICIPATE IN LONG-TERM ACTIVITIES VITAL SIGNS DAILY FOR ONE WEEK, THEN WEEKLY WEIGHT MONTHLY CBC WITH DIFF AND CMP ON FRIDAY, . CALL RESULTS TO DR. GUSMAN'S OFFICE. 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 NEXT APPOINTMENT WITH DR. PENG FOR CHEMOTHERAPY IS FEBRUARY 02, 2019. CODE STATUS: FULL CODE ALERT, ORIENTED X3. SPEECH GARBLED AT TIMES. SHE HAS BEEN ABLE TO COMMUNICATE HER NEEDS WITH THE NURSING STAFF AND PHYSICIANS BY USING A PEN AND PAPER IF NEEDED. HER BROTHER IN LAW IS HER POA AND HE HAS BEEN NOTIFIED OF DISCHARGE TO [facility] AND IS AGREEABLE. SHE REMAINS NPO AND IS RECEIVING JEVITY 1.2 BOLUS FEEDINGS OF 237 ML EVERY FOUR HOURS. SHE ALSO RECEIVES A BOLUS WATER FLUSH OF 150ML Q4H. PEG TUBE IS IN PLACE TO LEFT UPPER QUADRANT. THE SURROUNDING SKIN AROUND THE PEG TUBE INSERTION IS PINKISH RED AND EXCORIATED. SKIN IS OTHERWISE INTACT. SHE DOES HAVE INTERMITTENT C/O REFLUX AFTER BOLUS FEEDINGS. GAIT IS SLOW AND UNSTEADY AT TIMES. SHE USES A ROLLING A WALKER FOR AMBULATION. SHE IS INCONTINENT OF HER BOWELS, BUT DOES HAVE STRESS INCONTINENCE R/T PROLAPSED BLADDER. Eladio Gusman M.D. Anum Alex APRN
--- NOTE | 2019-01-17 10:05 | PN ---
DATE OF SERVICE: 01/13/19 SUBJECTIVE: 78-year-old white female hospitalized with generalized weakness, hyponatremia. The patient is getting alot of fluid to flush her gastrostomy tube and that could be the reason why the patient's condition is not improving in the way of hyponatremia. Otherwise the patient's hydration status has improved. The patient 's overall physical status is normal. She is undergoing chemotherapy and she is under Dr. Buckner at the present time. PHYSICAL EXAMINATION: VITAL SIGNS: Temperature 97.4, pulse 62, respiratory rate 18, blood pressure 160 /80, pulse ox 100%. HEENT: Head normocephalic, atraumatic. Eyes: Extraocular muscles are intact. Pupils are equal, round and reactive to light and accommodation. Ears: No lesions. Nose appeared normal. Throat: No exudate or erythema. NECK: Supple. No JVD, no carotid bruit. No lymphadenopathy or thyromegaly. LUNGS: Decreased breath sounds but clear to auscultation. Percussion note normal. Chest symmetrical. HEART: S1, S2, no S3. No murmurs. No cyanosis or clubbing. No ascites. Pulses: Dorsalis pedis and posterior tibial pulses +1 to +2 bilaterally. ABDOMEN: Soft. Nontender. Bowel sounds active. No CVA tenderness. No mass felt. EXTREMITIES: No edema. Full range of motion of all extremities, equal. NEUROLOGIC: No focal deficit. Cranial nerves II through XII are grossly intact. No headache, no double vision or headache. SKIN: Not dry. Intact. Turgor - normal. LYMPHATIC: No palpable lymph nodes/no lymphedema. MUSCULOSKELETAL: Normal joints with no swelling. Muscle tone is normal. LABS: Hemoglobin 10.3, hematocrit 30.9, WBC 6,400, normal differential. Creatinine 0.6 , BUN 18. ASSESSMENT: 1. Dehydration/weakness seems to be under control. 2. Hyponatremia still persists. PLAN: Continue NS and is waiting to go to the half-way as the patient hasn't been taken care of by anyone properly. Besides that she lives alone and is unable to take care of herself. CONDITION: Stable. Prognosis is poor. TIME SPENT: More than 30 minutes. Plan and coordination of the patient's care discussed in the presence of nurse. LUKE
--- NOTE | 2019-01-17 10:27 | PN ---
DATE OF SERVICE: 01/14/19 SUBJECTIVE: The patient was seen and examined with the nurse practitioner. The patient's condition is improving. Hydration status, nutritional status is acceptable. She is waiting to be transferred to a long-term. The patient was seen and examined with nurse practitioner. TIME SPENT: More than 30 minutes. Plan and coordination of the patient's care discussed in the presence of nurse. LUKE
--- NOTE | 2019-01-17 10:33 | PN ---
DATE OF SERVICE: 01/15/19 SUBJECTIVE: The patient is seen and examined with the nurse practitioner. The patient's condition is stable. She is willing to go to the care home. 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 Unable to understand her most of the time but the communication is done also with written notes. The patient is being followed by hematology/oncology, Dr. Buckner and she is on chemotherapy. The patient's vitals are stable. PHYSICAL EXAMINATION: VITAL SIGNS: Stable. HEENT: Head normocephalic, atraumatic. Eyes: Extraocular muscles are intact. Pupils are equal, round and reactive to light and accommodation. Ears: No lesions. Nose appeared normal. Throat: No exudate or erythema. NECK: Supple. No JVD, no carotid bruit. No lymphadenopathy or thyromegaly. LUNGS: Decreased breath sounds. Clear to auscultation. No wheezing noted. Percussion note normal. Chest symmetrical. HEART: S1, S2, no S3. No murmurs. No cyanosis or clubbing. No ascites. Pulses: Dorsalis pedis and posterior tibial pulses +1 bilaterally. ABDOMEN: Gastrostomy tube in place. Soft. Nontender. Bowel sounds active. No CVA tenderness. No mass felt. EXTREMITIES: No edema. Full range of motion of all extremities, equal. NEUROLOGIC: No focal deficit. Cranial nerves II through XII are grossly intact. No headache, no double vision or headache. SKIN: Not dry. Intact. Turgor - normal. LYMPHATIC: No palpable lymph nodes/no lymphedema. MUSCULOSKELETAL: Normal joints with no swelling. Muscle tone is normal. PLAN: The patient will be discharged as above to the care home in stable condition. TIME SPENT: More than 30 minutes. Plan and coordination of the patient's care discussed in the presence of nurse. LUKE
--- NOTE | 2019-01-17 10:34 | PN ---
CODING 01/09/19 ADMISSION DAY LEVEL 5 01/10/19 INTERMEDIATE 01/11/19 INTERMEDIATE 01/12/19 INTERMEDIATE 01/13/19 INTERMEDIATE 01/14/19 INTERMEDIATE 01/15/19 DISCHARGE MTDD
--- NOTE | 2019-02-23 09:58 | DS ---
DATE OF SERVICE: 01/15/19 FINAL DIAGNOSIS: 1. HYPONATREMIA 2. GENERALIZED WEAKNESS 3. HYPERTENSION 4. CANCER OF THE TONGUE - DR. BUCKNER 5. FLUID OVERLOAD, RESOLVING 6. THROAT CA 7. DYSPHASIA 8. HYPERTENSION 9. GERD 10.PEG TUBE- LUQ 11.OA 12.PROLAPSED BLADDER 13.HYPOTHYROIDISM 14.ANXIETY 15.PARTIAL REMOVAL OF TONGUE LAST VITALS: Temp Pulse Resp BP Pulse Ox 97.5 F L 78 16 148/82 H 99 01/15/19 05:16 01/15/19 05:16 01/14/19 05:16 01/15/19 05:16 01/15/19 05:16 DISCHARGE INSTRUCTIONS: DISCHARGE TO [facility]. VITAL SIGNS DAILY FOR ONE WEEK, THEN WEEKLY. WEIGHT MONTHLY. CBC WITH DIFF AND CMP ON FRIDAY, . CALL RESULTS TO DR. EPSTEIN'S OFFICE.THEN CBC WITH DIFF AND CMP WEEKLY. LIPIDS, TSH EVERY 6 MONTHS. PT/OT/ST EVALUATE AND TREAT. NEEDLE SETTER CONSULT FOR OPTIMAL DIETARY INTAKE. INCONTINENT CARE NEEDED. DECUBITIS PRECAUTIONS NEEDED. PATIENT TO BE SEEN ON ROUNDS BY SERVANDO ALEX APRN IN 7 -10 DAYS. NEXT APPOINTMENT WITH DR. BUCKNER FOR CHEMOTHERAPY IS FEBRUARY 02, 2019. CODE STATUS: FULL CODE. TAKE THESE MEDICATIONS AT HOME: Acetaminophen (Tylenol) 500 mg GT DAILY PRN Hydrocodone Bitart/Acetaminophen ([place] 5-325) 1 tab GT Q6-8H PRN Amlodipine Besylate (Norvasc) 5 mg GT DAILY KARTHIKEYAN Clotrimazole (Lotrimin) 1 applic TP BID PRN Diazepam (Valium) 5 mg GT QID PRN Hydroxyzine HCl (Atarax) 25 mg GT BID KARTHIKEYAN Levothyroxine Sodium (Synthroid) 125 mcg GT QDAC KARTHIKEYAN Losartan Potassium (Cozaar) 50 mg GT BID KARTHIKEYAN Nystatin (Nystop Cream) 1 applic TP BID KARTHIKEYAN apply to area around G tube insertion site Pravastatin Sodium (Pravachol) 40 mg GT DAILY KARTHIKEYAN Propranolol HCl (Inderal) 40 mg GT BID KARTHIKEYAN ALLERGIES: IV constrast Allergy (Uncoded 12/08/16 18:18) DISCONTINUED MEDICATIONS: NONE NEW PRESCRIPTIONS: NYSTATIN CREAM - WASH AREA G TUBE WITH SOAP AND WATER. PAT DRY. APPLY THIN LAYER OF CREAM TWICE A DAY TO THE EXCORIATED SKIN AROUND G TUBE INSERTION SITE. SMOKING: NON SMOKER DISEASE SPECIFIC EDUCATION: HYPONATREMIA WEAKNESS HTN PT/OT/ST DIET: NPO JEVITY 1.2 237 ML BOLUS FEEDINGS EVERY FOUR HOURS FLUSH WITH 150 ML WATER BOLUS EVERY FOUR HOURS ACTIVITY: MAY PARTICIPATE IN [facility]AIL ACTIVITIES HOSPITAL COURSE: 78 year old white female presented to the emergency room with weakness, elevated blood pressure. She had severe hyponatremia down to 116. She has a history of cancer of the tongue. She has a G Tube which she gets all her feedings through this. She also had severe leg edema. She was admitted given hypertonic solution although we did have to do Lasix IV due to the volume overload. Dr. Buckner had been instructing her regarding her tube feedings. She was doing Jevity every 4-6 hours and then flushing with a 500ml Bolus of water and we believe that this had contributed to her hyponatremia. We initial cut this amount in half to 250 and her sodium level slightly improved then we cut it down to 125. She has been tolerating this well. On day of discharge she does not have any edema. She is feeling better however still very weak. She is agreeable to go to the custodial for physical and occupational therapy as she does live by herself. She had part of her tongue removed about 2 years ago. They thought that they had got all of the cancer however it has returned. She is still undergoing chemo with Dr. Buckner and this has just lead to progressive weakness. I do feel that going to the custodial is the best choice for her at this time. She will discharged there in stable condition. She is to have a repeat CBC and CMP in two days. She is to continue with the 125cc Bolus after feeds. We will follow her closely. TIME SPENT: More than 60 minutes. MTDD
== END 2019-01-15 14:33 | DRG 948 ==
LOC: ED 06:43 → SCU 10:16 → MEDSURG B 01-13 07:50
PROVIDERS: ADMIT Internal Medicine; ATTEND Internal Medicine
DX: R13.10 Dysphagia, unspecified; M19.90 Unspecified osteoarthritis, unspecified site; E87.1 Hypo-osmolality and hyponatremia; K21.9 Gastro-esophageal reflux disease without esophagitis; R53.81 Other malaise; R42 Dizziness and giddiness; I10 Essential (primary) hypertension; R51 Headache; F41.9 Anxiety disorder, unspecified; E87.70 Fluid overload, unspecified; R53.1 Weakness; E86.0 Dehydration